=== PATIENT | female | born 1955 | race Caucasian/White ===

== ENCOUNTER 2019-12-21 09:20 | Emergency (ER) | payer MEDICARE, OTHER ==
[~2019-12-21] VITALS: Ht 172.7 cm; Wt 104.5 kg
[~2019-12-21 09:20] MED LIST: ATOR20TA86 PO; ENAL10TA2 PO; METF-445 PO; MULT-1192 PO; QUET200T PO; SERT100T12 PO; SITA100 PO
[2019-12-21] MEDS ORDERED: HYDR-1475 PO (09:47)
[2019-12-21] MEDS ORDERED: ENAL20 PO (09:47)
[2019-12-21 09:48] LABS: GLUCOSE,POINT OF CARE 254 MG/DL (70-110)
[2019-12-21] MEDS ORDERED: BENZ100C68 PO (10:16)
[2019-12-21] MEDS ORDERED: ATOR20TA86 PO (10:16)
[2019-12-21] MEDS ORDERED: GUAIF10 PO (10:16)
[2019-12-21] MEDS ORDERED: FAMO20 PO (10:16)
[2019-12-21] MEDS ORDERED: GABA-533 PO (10:16)
[2019-12-21] MEDS ORDERED: LEVO330T5 PO (10:16)
[2019-12-21] MEDS ORDERED: MAGOX PO (10:16)
[2019-12-21] MEDS ORDERED: OXYB5 PO (10:16)
[2019-12-21] MEDS ORDERED: NAPR-1025 PO (10:16)
[2019-12-21] MEDS ORDERED: LACT100C2 PO (10:16)
[2019-12-21] MEDS ORDERED: ACET-66 PO (10:16)
[2019-12-21] MEDS ORDERED: BISM525O9 PO (10:16)
[2019-12-21] MEDS ORDERED: LOPE-202 PO (10:16)
[2019-12-21] MEDS ORDERED: IPRAHFA IH (10:16)
[2019-12-21] MEDS ORDERED: METF-960 PO (10:16)
[2019-12-21 10:59] VITALS: BP 109/66
== END 2019-12-21 12:05 | disposition home or self-care (01) ==
LOC: EMS 09:23
DX: R10.32 Left lower quadrant pain (principal); M79.631 Pain in right forearm; E78.00 Pure hypercholesterolemia, unspecified; E11.9 Type 2 diabetes mellitus without complications; J44.9 Chronic obstructive pulmonary disease, unspecified; F32.9 Major depressive disorder, single episode, unspecified; F17.210 Nicotine dependence, cigarettes, uncomplicated; Z90.49 Acquired absence of other specified parts of digestive tract; Z90.710 Acquired absence of both cervix and uterus; Z79.899 Other long term (current) drug therapy

== ENCOUNTER 2020-01-13 07:19 | Emergency (ER) | payer MEDICARE, OTHER ==
[~2020-01-13] VITALS: Ht 167.6 cm; Wt 86.4 kg
[~2020-01-13 07:19] MED LIST changes: +ACET-66 PO; +BENZ100C68 PO; +BISM525O9 PO; -ENAL10TA2 PO; +ENAL20 PO; +FAMO20 PO; +GABA-533 PO; +GUAIF10 PO; +HYDR-1475 PO; +IPRAHFA IH; +LACT100C2 PO; +LEVO330T5 PO; +LOPE-202 PO; +MAGOX PO; -METF-445 PO; +METF-960 PO; +NAPR-1025 PO; +OXYB5 PO
[2020-01-13 07:41] LABS: GLUCOSE,POINT OF CARE 178 MG/DL (70-110)
[2020-01-13] MEDS ORDERED: ACETAMINOPHEN 500 MG TABLET PO ONE (09:00)
[2020-01-13 09:38] VITALS: BP 120/87
== END 2020-01-13 09:57 | disposition home or self-care (01) ==
LOC: EMS 07:21
DX: M25.551 Pain in right hip (principal); M25.552 Pain in left hip; F17.210 Nicotine dependence, cigarettes, uncomplicated; J44.9 Chronic obstructive pulmonary disease, unspecified; F32.9 Major depressive disorder, single episode, unspecified; E11.9 Type 2 diabetes mellitus without complications; E78.00 Pure hypercholesterolemia, unspecified; Z90.710 Acquired absence of both cervix and uterus; Z90.89 Acquired absence of other organs; Z79.84 Long term (current) use of oral hypoglycemic drugs
CPT/HCPCS: 72170; 99406

== ENCOUNTER 2020-01-14 14:35 | Inpatient (IN) | payer MEDICARE, OTHER ==
[~2020-01-14] VITALS: Ht 162.6 cm; Wt 82.2 kg
[2020-01-14 14:54] LABS: GLUCOSE,POINT OF CARE 211 MG/DL (70-110)
[2020-01-14 18:44] LABS: HEMATOCRIT 30.8 % (36-46); HEMOGLOBIN 9.8 g/dL (12.0-16.0); MEAN CORPUSCULAR HEMOGLOBIN 27.7 pg (26.0-34.0); MEAN CORPUSCULAR HGB CONC 31.7 G/dL (31.0-37.0); MEAN CORPUSCULAR VOLUME 87 fL (80-100); PLATELET COUNT (AUTO) 504 K/uL (150-450); RED BLOOD CELL COUNT(AUTO) 3.53 MIL/uL (4.00-5.20); RED CELL DISTRIBUTION WIDTH 17.6 % (11.5-14.5)
[2020-01-14 18:55] LABS: ALANINE AMINOTRANSFERASE 85 U/L (12-78); ALBUMIN 2.6 g/dL (3.4-5.0); ALKALINE PHOSPHATASE 218 U/L (46-116); ANION GAP 4 mmol/L (8-16); ASPARTATE AMINOTRANSFERASE 124 U/L (15-37); BILIRUBIN,TOTAL 0.7 mg/dL (0.1-1.0); CALCIUM, TOTAL 8.6 mg/dL (8.8-10.5); CARBON DIOXIDE 30 mmol/L (22-29); CHLORIDE 91 mmol/L (98-107); CREATININE 1.85 mg/dL (0.60-1.30); GLOMERULAR FILTR. RATE CALC 28 mL/min (>60); GLUCOSE,RANDOM 163 mg/dL (70-110); POTASSIUM 5.7 mmol/L (3.5-5.1); SODIUM SERUM 125 mmol/L (136-145); TOTAL PROTEIN, SERUM 7.3 g/dL (6.4-8.2); UREA NITROGEN, BLOOD 50 mg/dL (7-18)
[2020-01-14 19:27] LABS: BAND NEUTROPHILS % (MANUAL) 0 % (0-5)
[2020-01-14 19:33] LABS: CORRECTED WHITE BLOOD COUNT 8.4 K/uL (4.5-11.0); LYMPHOCYTES % (MANUAL) 18 % (22-44); MONOCYTES % (MANUAL) 9 % (2-9); SEGMENTED NEUTROPHILS % 73 % (40-70)
[2020-01-14] MEDS ORDERED: QUEtiapine FUMARATE 100 MG TABLET PO ONE (20:45)
[2020-01-14] MEDS ORDERED: LORazepam 2 MG/ML VIAL IVP ONE (20:45)
[2020-01-14] MEDS ORDERED: SODIUM CHLORIDE 0.9% 1,000 ML IV ONE ×2 (20:45→21:00)
[2020-01-14] MEDS ORDERED: DEXTROSE 50%-WATER 25 GM/50 ML SYRINGE IVP PRN (21:00)
[2020-01-14] MEDS ORDERED: 0.9% SODIUM CHLORIDE 10 ML SYRINGE IVP PRN (21:00)
[2020-01-14] MEDS: DOCUSATE SODIUM 100 MG CAPSULE PO SCH (21:00)
[2020-01-14] MEDS ORDERED: ALBUTEROL SULFATE 2.5 MG/0.5 ML NEB SOLUTION NEB PRN (21:00)
[2020-01-14] MEDS ORDERED: ACETAMINOPHEN 325 MG TABLET PO PRN (21:00)
[2020-01-14] MEDS ORDERED: ONDANSETRON HCL 4 MG/2 ML VIAL IVP PRN (21:00)
[2020-01-14 22:00] VITALS: BP 116/68
[2020-01-14] MEDS: INSULIN LISPRO 100 UNITS/ML SQ PRN (23:52)
[2020-01-14] MEDS: HEPARIN SODIUM,PORCINE 5,000 UNITS/ML VIAL SQ SCH (23:52)
[2020-01-15] VITALS (7 sets, daily range): BP systolic 94–144; BP diastolic 51–73
[2020-01-15 02:51] LABS: GLUCOMETER DEV NAME(LOC) 4E.2; GLUCOSE,POINT OF CARE 165 MG/DL (70-110)
[2020-01-15 06:15] LABS: GLUCOMETER DEV NAME(LOC) 4E.2; GLUCOSE,POINT OF CARE 96 MG/DL (70-110)
[2020-01-15 07:38] LABS: CALCIUM, TOTAL 8.6 mg/dL (8.8-10.5); CREATININE 1.53 mg/dL (0.60-1.30); POTASSIUM 4.9 mmol/L (3.5-5.1)
[2020-01-15] MEDS: DOCUSATE SODIUM 100 MG CAPSULE PO SCH ×2 (09:00→20:23)
[2020-01-15] MEDS: FAMOTIDINE 20 MG TABLET PO SCH (09:00)
[2020-01-15] MEDS: HEPARIN SODIUM,PORCINE 5,000 UNITS/ML VIAL SQ SCH ×2 (09:50→20:24)
[2020-01-15] MEDS: SODIUM CHLORIDE 0.9% 1,000 ML IV SCH ×2 (09:51→23:12)
[2020-01-15] MEDS: SERTRALINE HCL 100 MG TABLET PO SCH (11:00)
[2020-01-15] MEDS ORDERED: LEVO5TAB13 PO (11:08)
[2020-01-15] MEDS: QUEtiapine FUMARATE 200 MG TABLET PO SCH (20:23)
[2020-01-15] MEDS: NYSTATIN 15 GM POWDER BOTTLE TP SCH (20:24)
[2020-01-15 21:04] LABS: GLUCOMETER DEV NAME(LOC) 6N.1; GLUCOSE,POINT OF CARE 96 MG/DL (70-110)
[2020-01-15] MEDS ORDERED: FLUTICASONE/VILANTEROL 200-25 MCG/INH INHALER [14] IH ONE (22:15)
[2020-01-15 22:30] LABS: GLUCOMETER DEV NAME(LOC) 4E.2; GLUCOSE,POINT OF CARE 97 MG/DL (70-110)
[2020-01-15 22:30] LABS: GLUCOMETER DEV NAME(LOC) 4E.2; GLUCOSE,POINT OF CARE 101 MG/DL (70-110)
[2020-01-15 22:35] LABS: ABG A-A DIFF O2 204.6 mmHg (10-20.0); ABG BASE EXCESS -3.2 mmol/L (-2.0-3.0); ABG CARBOXYHEMOGLOBIN 2.7 % (0.0-1.5); ABG HCO3 20.9 mmol/L (22.0-26.0); ABG METHEMOGLOBIN 0.3 % (0.0-1.5); ABG OXYGEN CONTENT 13.3 mL/dL (15.0-23.0); ABG OXYGEN SATURATION 91.4 % (95.0-98.0); ABG OXYHEMOGLOBIN 88.7 % (94.0-100.0); ABG TOTAL HEMOGLOBIN 10.6 G/dL (12.0-18.0); PO2, ARTERIAL BG 69.7 mmHg (79.0-87.0); SOURCE, BLOOD GAS ARTERIAL; TEMPERATURE, FAHRENHEIT, BG 97.9 FAHREN (96.0-98.6)
[2020-01-15 22:37] LABS: ABG PCO2 74 mmHg (35-45); ABG PH 7.157 (7.35-7.450)
[2020-01-15 22:38] LABS: O2 DEVICE,BLOOD GAS VENTI MASK (ROOM AIR); SITE, BLOOD GAS RT RADIAL
[2020-01-15] MEDS: MethylPREDNISolone SOD SUCC 40 MG/ML VIAL IVP SCH (23:13)
[2020-01-16] MEDS ORDERED: SODIUM BICARBONATE 50 MEQ in SODIUM CHLORIDE 0.9% 1,000 ML IV ONE (01:00)
[2020-01-16 01:10] LABS: ABG PH 7.144 (7.35-7.450); SITE, BLOOD GAS RT RADIAL; SOURCE, BLOOD GAS ARTERIAL; TEMPERATURE, FAHRENHEIT, BG 98.6 FAHREN (96.0-98.6)
[2020-01-16 01:11] LABS: ABG BASE EXCESS -9.6 mmol/L (-2.0-3.0); ABG CARBOXYHEMOGLOBIN 3.1 % (0.0-1.5); ABG HCO3 16.7 mmol/L (22.0-26.0); ABG METHEMOGLOBIN 0.3 % (0.0-1.5); ABG OXYGEN CONTENT 12.7 mL/dL (15.0-23.0); ABG OXYGEN SATURATION 91.6 % (95.0-98.0); ABG OXYHEMOGLOBIN 88.5 % (94.0-100.0); ABG PCO2 58 mmHg (35-45); ABG TOTAL HEMOGLOBIN 10.1 G/dL (12.0-18.0); PO2, ARTERIAL BG 74.3 mmHg (79.0-87.0)
[2020-01-16 01:12] LABS: ABG A-A DIFF O2 290.3 mmHg (10-20.0); O2 DEVICE,BLOOD GAS BIPAP (ROOM AIR)
[2020-01-16] MEDS: IPRATROPIUM BROMIDE 0.5 MG/2.5 ML NEB SOLUTION NEB SCH ×4 (03:11→20:40)
[2020-01-16] MEDS: ALBUTEROL SULFATE 2.5 MG/0.5 ML NEB SOLUTION NEB SCH ×4 (03:11→20:40)
[2020-01-16 03:23] LABS: ABG PCO2 64 mmHg (35-45); SITE, BLOOD GAS RT RADIAL; SOURCE, BLOOD GAS ART; TEMPERATURE, FAHRENHEIT, BG 97.8 FAHREN (96.0-98.6)
[2020-01-16 03:24] LABS: ABG A-A DIFF O2 294.1 mmHg (10-20.0); ABG BASE EXCESS -5.2 mmol/L (-2.0-3.0); ABG CARBOXYHEMOGLOBIN 2.4 % (0.0-1.5); ABG HCO3 19.6 mmol/L (22.0-26.0); ABG METHEMOGLOBIN 0.3 % (0.0-1.5); ABG OXYGEN CONTENT 13.4 mL/dL (15.0-23.0); ABG OXYGEN SATURATION 90.1 % (95.0-98.0); ABG OXYHEMOGLOBIN 87.7 % (94.0-100.0); ABG TOTAL HEMOGLOBIN 10.8 G/dL (12.0-18.0); PO2, ARTERIAL BG 63.9 mmHg (79.0-87.0)
[2020-01-16 03:25] LABS: O2 DEVICE,BLOOD GAS BIPAP (ROOM AIR)
[2020-01-16] MEDS ORDERED: RAPID SEQUENCE KIT [RSI] 1 EACH KIT ONE (04:05)
[2020-01-16 04:30] VITALS: BP 176/70
[2020-01-16 05:42] LABS: ABG BASE EXCESS -8.6 mmol/L (-2.0-3.0); ABG CARBOXYHEMOGLOBIN 2.3 % (0.0-1.5); ABG HCO3 17.4 mmol/L (22.0-26.0); ABG METHEMOGLOBIN 0.3 % (0.0-1.5); ABG OXYGEN CONTENT 14.8 mL/dL (15.0-23.0); ABG OXYHEMOGLOBIN 92.5 % (94.0-100.0); ABG PCO2 53 mmHg (35-45); ABG TOTAL HEMOGLOBIN 11.3 G/dL (12.0-18.0); SOURCE, BLOOD GAS ARTERIAL; TEMPERATURE, FAHRENHEIT, BG 97.8 FAHREN (96.0-98.6)
[2020-01-16 05:43] LABS: ABG PH 7.186 (7.35-7.450); O2 DEVICE,BLOOD GAS VENTILATOR (ROOM AIR); PEEP,BG 5 cm H2O; SITE, BLOOD GAS RT RADIAL; SPONTANEOUS VT, BG 502 ml; VT, ABG 500 ml
[2020-01-16] MEDS: MethylPREDNISolone SOD SUCC 40 MG/ML VIAL IVP SCH ×3 (05:47→17:43)
[2020-01-16] MEDS: PROPOFOL 1000 MG/ISO-OSM 100 ML IV PRN ×5 (05:51→22:01)
[2020-01-16] MEDS: INSULIN LISPRO 100 UNITS/ML SQ PRN ×2 (06:51→17:47)
[2020-01-16 06:59] LABS: GLUCOSE,POINT OF CARE 165 MG/DL (70-110)
[2020-01-16 07:25] VITALS: BP 136/70
[2020-01-16 08:00] VITALS: BP 133/72
[2020-01-16] MEDS: LORazepam 2 MG/ML VIAL IVP PRN (08:36)
[2020-01-16] MEDS ORDERED: *CLINICAL-LEVOFLOXACIN IVPB DOSING CLINICAL ONE (08:45)
[2020-01-16] MEDS: DOCUSATE SODIUM 100 MG CAPSULE PO SCH ×2 (09:00→21:39)
[2020-01-16] MEDS: SERTRALINE HCL 100 MG TABLET PO SCH (09:00)
[2020-01-16] MEDS: FAMOTIDINE 20 MG TABLET PO SCH (09:00)
[2020-01-16] MEDS: NYSTATIN 15 GM POWDER BOTTLE TP SCH ×4 (09:00→21:39)
[2020-01-16] MEDS: CLINDAMYCIN 600 MG/D5% WATER 50 ML IV SCH ×2 (10:00→17:43)
[2020-01-16] MEDS ORDERED: SODIUM CHLORIDE 0.9% 0 ML ONE (10:13)
[2020-01-16] MEDS ORDERED: IOVERSOL 350 MG/ML 100 ML VIAL ONE (10:13)
[2020-01-16] MEDS: HEPARIN SODIUM,PORCINE 5,000 UNITS/ML VIAL SQ SCH ×2 (11:16→21:39)
[2020-01-16 12:00] VITALS: BP 131/69
[2020-01-16] MEDS ORDERED: PROPOFOL 1000 MG/ISO-OSM 100 ML IV ONE (14:19)
[2020-01-16] MEDS: SODIUM CHLORIDE 0.9% 1,000 ML IV SCH (14:37)
[2020-01-16 16:00] VITALS: BP 150/75
[2020-01-16 16:57] LABS: CALCIUM, TOTAL 8.3 mg/dL (8.8-10.5); CREATININE 1.18 mg/dL (0.60-1.30); POTASSIUM 5.2 mmol/L (3.5-5.1)
[2020-01-16 17:01] LABS: MAGNESIUM 1.7 mg/dL (1.80-2.40); PHOSPHORUS 3.3 mg/dL (2.5-4.9)
[2020-01-16 20:00] VITALS: BP 117/61
[2020-01-16] MEDS: QUEtiapine FUMARATE 200 MG TABLET PO SCH (22:14)
[2020-01-16] MEDS: FLUTICASONE/VILANTEROL 200-25 MCG/INH INHALER [14] IH SCH (22:30)
[2020-01-17] VITALS: BP 95/49
[2020-01-17] MEDS: MethylPREDNISolone SOD SUCC 40 MG/ML VIAL IVP SCH ×4 (00:24→17:36)
[2020-01-17] MEDS: INSULIN LISPRO 100 UNITS/ML SQ PRN ×4 (00:25→17:39)
[2020-01-17] MEDS: PROPOFOL 1000 MG/ISO-OSM 100 ML IV PRN ×4 (01:09→17:37)
[2020-01-17] MEDS: CLINDAMYCIN 600 MG/D5% WATER 50 ML IV SCH ×3 (01:10→17:36)
[2020-01-17] MEDS: ALBUTEROL SULFATE 2.5 MG/0.5 ML NEB SOLUTION NEB SCH ×4 (01:23→19:43)
[2020-01-17] MEDS: IPRATROPIUM BROMIDE 0.5 MG/2.5 ML NEB SOLUTION NEB SCH ×4 (01:23→19:43)
[2020-01-17] MEDS ORDERED: SODIUM CHLORIDE 0.9% 250 ML IV ONE (02:01)
[2020-01-17 04:00] VITALS: BP 108/56
[2020-01-17] MEDS: SODIUM CHLORIDE 0.9% 1,000 ML IV SCH (04:15)
[2020-01-17 05:49] LABS: BASOPHILS % (AUTO) 0.1 % (0.0-2.0); EOSINOPHILS % (AUTO) 0 % (1.0-6.0); HEMATOCRIT 32.4 % (36-46); HEMOGLOBIN 10.1 g/dL (12.0-16.0); LYMPHOCYTES # (AUTO) 0.5 K/uL (1.0-4.8); LYMPHOCYTES % (AUTO) 4.7 % (22.0-44.0); MEAN CORPUSCULAR HGB CONC 31.2 G/dL (31.0-37.0); MEAN CORPUSCULAR VOLUME 87 fL (80-100); MONOCYTES # (AUTO) 0.5 K/uL (0.1-1.0); MONOCYTES % (AUTO) 4.7 % (2.0-9.0); NEUTROPHILS # (AUTO) 9.1 K/uL (1.8-7.7); PLATELET COUNT (AUTO) 401 K/uL (150-450); RED BLOOD CELL COUNT(AUTO) 3.75 MIL/uL (4.00-5.20)
[2020-01-17 06:01] LABS: NEUTROPHILS % (AUTO) 90.5 % (40.0-70.0)
[2020-01-17 07:09] LABS: CREATININE 1.05 mg/dL (0.60-1.30); MAGNESIUM 1.9 mg/dL (1.80-2.40); POTASSIUM 4.9 mmol/L (3.5-5.1)
[2020-01-17 08:00] VITALS: BP 102/58
[2020-01-17 10:03] LABS: GLUCOSE,POINT OF CARE 158 MG/DL (70-110)
[2020-01-17 10:12] LABS: GLUCOSE,POINT OF CARE 203 MG/DL (70-110)
[2020-01-17 10:12] LABS: GLUCOSE,POINT OF CARE 160 MG/DL (70-110)
[2020-01-17] MEDS: DOCUSATE SODIUM 100 MG CAPSULE PO SCH ×2 (10:27→20:50)
[2020-01-17] MEDS: HEPARIN SODIUM,PORCINE 5,000 UNITS/ML VIAL SQ SCH ×2 (10:27→20:44)
[2020-01-17] MEDS: SERTRALINE HCL 100 MG TABLET PO SCH (10:27)
[2020-01-17] MEDS: LEVOFLOXACIN 750 MG/D5% WATER 150 ML IV SCH (10:27)
[2020-01-17] MEDS: FAMOTIDINE 20 MG TABLET PO SCH (10:27)
[2020-01-17] MEDS: NYSTATIN 15 GM POWDER BOTTLE TP SCH ×4 (10:27→20:49)
[2020-01-17 12:00] VITALS: BP 122/63
[2020-01-17] MEDS ORDERED: DEXMEDETOMIDINE HCL 200 MCG in SODIUM CHLORIDE 0.9% 48 ML IV PRN (13:35)
[2020-01-17 16:00] VITALS: BP 121/64
[2020-01-17 18:54] LABS: GLUCOSE,POINT OF CARE 170 MG/DL (70-110)
[2020-01-17 19:59] LABS: GLUCOSE,POINT OF CARE 172 MG/DL (70-110)
[2020-01-17 20:00] VITALS: BP 141/72
[2020-01-17] MEDS: FLUTICASONE/VILANTEROL 200-25 MCG/INH INHALER [14] IH SCH (20:41)
[2020-01-17] MEDS: QUEtiapine FUMARATE 200 MG TABLET PO SCH (20:50)
[2020-01-17] MEDS: DEXMEDETOMIDINE HCL 200 MCG in SODIUM CHLORIDE 0.9% 48 ML IV PRN (22:02)
[2020-01-17] MEDS ORDERED: SODIUM CHLORIDE 0.9% 100 ML ONE (23:57)
[2020-01-18] VITALS (7 sets, daily range): BP systolic 138–161; BP diastolic 57–99
[2020-01-18] MEDS: MethylPREDNISolone SOD SUCC 40 MG/ML VIAL IVP SCH ×5 (00:03→23:24)
[2020-01-18] MEDS: INSULIN LISPRO 100 UNITS/ML SQ PRN ×5 (00:04→23:25)
[2020-01-18] MEDS: ALBUTEROL SULFATE 2.5 MG/0.5 ML NEB SOLUTION NEB SCH ×4 (01:21→19:30)
[2020-01-18] MEDS: IPRATROPIUM BROMIDE 0.5 MG/2.5 ML NEB SOLUTION NEB SCH ×4 (01:21→19:30)
[2020-01-18] MEDS: CLINDAMYCIN 600 MG/D5% WATER 50 ML IV SCH ×2 (01:45→11:04)
[2020-01-18 02:13] LABS: GLUCOSE,POINT OF CARE 196 MG/DL (70-110)
[2020-01-18 05:24] LABS: BASOPHILS % (AUTO) 0.4 % (0.0-2.0); EOSINOPHILS % (AUTO) 0 % (1.0-6.0); HEMATOCRIT 32.8 % (36-46); HEMOGLOBIN 10.2 g/dL (12.0-16.0); LYMPHOCYTES # (AUTO) 0.8 K/uL (1.0-4.8); MEAN CORPUSCULAR HGB CONC 31.2 G/dL (31.0-37.0); MEAN CORPUSCULAR VOLUME 87 fL (80-100); MONOCYTES # (AUTO) 0.4 K/uL (0.1-1.0); MONOCYTES % (AUTO) 3.3 % (2.0-9.0); NEUTROPHILS # (AUTO) 11.5 K/uL (1.8-7.7); PLATELET COUNT (AUTO) 387 K/uL (150-450); RED BLOOD CELL COUNT(AUTO) 3.79 MIL/uL (4.00-5.20); RED CELL DISTRIBUTION WIDTH 17.4 % (11.5-14.5)
[2020-01-18 05:35] LABS: BILIRUBIN,TOTAL 0.5 mg/dL (0.1-1.0); CALCIUM, TOTAL 8.3 mg/dL (8.8-10.5); CREATININE 1.01 mg/dL (0.60-1.30); MAGNESIUM 1.7 mg/dL (1.80-2.40); POTASSIUM 4.6 mmol/L (3.5-5.1); TOTAL PROTEIN, SERUM 6.3 g/dL (6.4-8.2)
[2020-01-18 05:41] LABS: NEUTROPHILS % (AUTO) 90.3 % (40.0-70.0)
[2020-01-18] MEDS: DEXMEDETOMIDINE HCL 200 MCG in SODIUM CHLORIDE 0.9% 48 ML IV PRN ×3 (06:31→11:04)
[2020-01-18 06:48] LABS: GLUCOSE,POINT OF CARE 180 MG/DL (70-110)
[2020-01-18] MEDS ORDERED: MAGNESIUM OXIDE 400 MG TABLET PO PRN (08:45)
[2020-01-18] MEDS: DOCUSATE SODIUM 100 MG CAPSULE PO SCH ×2 (09:29→20:07)
[2020-01-18] MEDS: LEVOFLOXACIN 750 MG/D5% WATER 150 ML IV SCH (09:29)
[2020-01-18] MEDS: SERTRALINE HCL 100 MG TABLET PO SCH (09:29)
[2020-01-18] MEDS: FAMOTIDINE 20 MG TABLET PO SCH (09:29)
[2020-01-18] MEDS: HEPARIN SODIUM,PORCINE 5,000 UNITS/ML VIAL SQ SCH ×2 (09:29→20:06)
[2020-01-18] MEDS: NYSTATIN 15 GM POWDER BOTTLE TP SCH ×4 (09:29→20:07)
[2020-01-18] MEDS: MAGNESIUM GLUCONATE 1 GM/5 ML LIQUID 22 ML UDCUP NG PRN ×2 (11:05→17:23)
[2020-01-18] MEDS: PROPOFOL 1000 MG/ISO-OSM 100 ML IV PRN ×3 (13:04→21:07)
[2020-01-18 14:13] LABS: ABG BASE EXCESS 3.2 mmol/L (-2.0-3.0); ABG CARBOXYHEMOGLOBIN 1.2 % (0.0-1.5); ABG HCO3 26.9 mmol/L (22.0-26.0); ABG METHEMOGLOBIN 0.3 % (0.0-1.5); ABG OXYGEN CONTENT 13.5 mL/dL (15.0-23.0); ABG OXYGEN SATURATION 94.4 % (95.0-98.0); ABG PCO2 44 mmHg (35-45); ABG PH 7.417 (7.35-7.450); ABG TOTAL HEMOGLOBIN 10.3 G/dL (12.0-18.0); O2 DEVICE,BLOOD GAS VENTILATOR (ROOM AIR); PO2, ARTERIAL BG 69.6 mmHg (79.0-87.0); SITE, BLOOD GAS LFT RADIAL; SOURCE, BLOOD GAS ARTERIAL; TEMPERATURE, FAHRENHEIT, BG 98.6 FAHREN (96.0-98.6); VT, ABG 500 ml
[2020-01-18 14:14] LABS: PEEP,BG 5 cm H2O
[2020-01-18] MEDS ORDERED: VANCOMYCIN HCL 1.5 GM in DEXTROSE 5%-WATER 250 ML IV ONE (17:00)
[2020-01-18] MEDS: PIPERACILLIN/TAZO 3.375 GM/D5W 50 ML IV SCH ×2 (17:22→23:24)
[2020-01-18] MEDS ORDERED: BISACODYL 10 MG RECTAL RECTAL SUPPOSITORY PR PRN (17:30)
[2020-01-18] MEDS ORDERED: MAGNESIUM HYDROXIDE SUSPENSION 30 ML UDCUP PO PRN (17:30)
[2020-01-18 19:05] LABS: GLUCOSE,POINT OF CARE 228 MG/DL (70-110)
[2020-01-18] MEDS: FLUTICASONE/VILANTEROL 200-25 MCG/INH INHALER [14] IH SCH (20:06)
[2020-01-18] MEDS: QUEtiapine FUMARATE 200 MG TABLET PO SCH (20:06)
[2020-01-18] MEDS ORDERED: IOVERSOL 350 MG/ML 150 ML VIAL ONE (20:28)
[2020-01-18] MEDS ORDERED: SODIUM CHLORIDE 0.9% 100 ML ONE (20:28)
[2020-01-18 20:49] LABS: GLUCOSE,POINT OF CARE 208 MG/DL (70-110)
[2020-01-19] VITALS (7 sets, daily range): BP systolic 148–165; BP diastolic 75–90
[2020-01-19] MEDS: PROPOFOL 1000 MG/ISO-OSM 100 ML IV PRN ×5 (01:24→21:24)
[2020-01-19] MEDS: IPRATROPIUM BROMIDE 0.5 MG/2.5 ML NEB SOLUTION NEB SCH ×4 (04:12→20:10)
[2020-01-19] MEDS: ALBUTEROL SULFATE 2.5 MG/0.5 ML NEB SOLUTION NEB SCH ×4 (04:12→20:10)
[2020-01-19] MEDS: PIPERACILLIN/TAZO 3.375 GM/D5W 50 ML IV SCH ×4 (05:09→23:22)
[2020-01-19] MEDS: MethylPREDNISolone SOD SUCC 40 MG/ML VIAL IVP SCH ×4 (05:10→23:22)
[2020-01-19] MEDS: INSULIN LISPRO 100 UNITS/ML SQ PRN ×2 (05:12→13:01)
[2020-01-19 05:28] LABS: BASOPHILS % (AUTO) 0.3 % (0.0-2.0); EOSINOPHILS % (AUTO) 0.4 % (1.0-6.0); HEMOGLOBIN 10.2 g/dL (12.0-16.0); LYMPHOCYTES # (AUTO) 1.1 K/uL (1.0-4.8); LYMPHOCYTES % (AUTO) 9.7 % (22.0-44.0); MEAN CORPUSCULAR HEMOGLOBIN 26.8 pg (26.0-34.0); MEAN CORPUSCULAR VOLUME 86 fL (80-100); MONOCYTES # (AUTO) 0.5 K/uL (0.1-1.0); MONOCYTES % (AUTO) 4.9 % (2.0-9.0); NEUTROPHILS # (AUTO) 9.3 K/uL (1.8-7.7); NEUTROPHILS % (AUTO) 84.7 % (40.0-70.0); PLATELET COUNT (AUTO) 317 K/uL (150-450); RED BLOOD CELL COUNT(AUTO) 3.82 MIL/uL (4.00-5.20); RED CELL DISTRIBUTION WIDTH 17.9 % (11.5-14.5)
[2020-01-19 07:46] LABS: CALCIUM, TOTAL 8.7 mg/dL (8.8-10.5); CREATININE 0.96 mg/dL (0.60-1.30); POTASSIUM 4.6 mmol/L (3.5-5.1)
[2020-01-19 07:52] LABS: MAGNESIUM 1.6 mg/dL (1.80-2.40); TOTAL PROTEIN, SERUM 6.1 g/dL (6.4-8.2)
[2020-01-19 08:06] LABS: GLUCOSE,POINT OF CARE 237 MG/DL (70-110)
[2020-01-19 08:07] LABS: GLUCOSE,POINT OF CARE 225 MG/DL (70-110)
[2020-01-19] MEDS: VANCOMYCIN HCL 1 GM/D5% WATER 200 ML IV SCH ×2 (08:47→20:09)
[2020-01-19] MEDS: LEVOFLOXACIN 750 MG/D5% WATER 150 ML IV SCH (08:48)
[2020-01-19] MEDS: FAMOTIDINE 20 MG TABLET PO SCH (09:00)
[2020-01-19] MEDS: SERTRALINE HCL 100 MG TABLET PO SCH (09:00)
[2020-01-19] MEDS: HEPARIN SODIUM,PORCINE 5,000 UNITS/ML VIAL SQ SCH ×2 (09:00→20:11)
[2020-01-19] MEDS: DOCUSATE SODIUM 100 MG CAPSULE PO SCH ×2 (09:00→20:10)
[2020-01-19 09:08] LABS: ABG A-A DIFF O2 167.5 mmHg (10-20.0); ABG BASE EXCESS 5.7 mmol/L (-2.0-3.0); ABG CARBOXYHEMOGLOBIN 1.7 % (0.0-1.5); ABG HCO3 28.9 mmol/L (22.0-26.0); ABG METHEMOGLOBIN 0.3 % (0.0-1.5); ABG OXYGEN CONTENT 15.2 mL/dL (15.0-23.0); ABG OXYGEN SATURATION 93.6 % (95.0-98.0); ABG OXYHEMOGLOBIN 91.7 % (94.0-100.0); ABG PCO2 45 mmHg (35-45); ABG TOTAL HEMOGLOBIN 11.8 G/dL (12.0-18.0); PO2, ARTERIAL BG 66.1 mmHg (79.0-87.0); SOURCE, BLOOD GAS ARTERIAL; TEMPERATURE, FAHRENHEIT, BG 98.6 FAHREN (96.0-98.6)
[2020-01-19 09:09] LABS: O2 DEVICE,BLOOD GAS VENTILATOR (ROOM AIR); PEEP,BG 5 cm H2O; SITE, BLOOD GAS RT RADIAL; VT, ABG 500 ml
[2020-01-19] MEDS: NYSTATIN 15 GM POWDER BOTTLE TP SCH ×4 (10:41→20:11)
[2020-01-19 11:16] LABS: INR 1.2 (0.9-1.1); PROTHROMBIN TIME 12.2 SEC (9.4-11.6)
[2020-01-19 16:02] LABS: SPECIMENTYPE,BODY FLUID PLEURAL
[2020-01-19 16:44] LABS: APPEARANCE,UNSPUN,BODY FLUID BLOODY (CLEAR); COLOR,BODY FLUID RED (LT YELLOW); TOTAL VOLUME,BODY FLUID 750 mL
[2020-01-19 16:46] LABS: WBC, BODY FLUID 400 /cu. mm.
[2020-01-19 16:54] LABS: APPEARANCE,SPUN,BODY FLUID CLEAR (CLEAR); BASOPHILS,BODY FLUID 0 %; EOSINOPHILS,BF (ANAL) 0 %; LYMPHOCYTES,BODY FLUID 42 %; MONOCYTES,BODY FLUID 6 %; NEUTROPHILS,BODY FLUID 52 %
[2020-01-19] MEDS: QUEtiapine FUMARATE 200 MG TABLET PO SCH (20:11)
[2020-01-19] MEDS: FLUTICASONE/VILANTEROL 200-25 MCG/INH INHALER [14] IH SCH (21:00)
[2020-01-20] VITALS: BP 128/61
[2020-01-20] MEDS: INSULIN LISPRO 100 UNITS/ML SQ PRN ×5 (00:17→23:47)
[2020-01-20] MEDS: PROPOFOL 1000 MG/ISO-OSM 100 ML IV PRN ×2 (01:44→07:21)
[2020-01-20] MEDS: IPRATROPIUM BROMIDE 0.5 MG/2.5 ML NEB SOLUTION NEB SCH ×4 (02:29→19:48)
[2020-01-20] MEDS: ALBUTEROL SULFATE 2.5 MG/0.5 ML NEB SOLUTION NEB SCH ×4 (02:29→19:48)
[2020-01-20 03:07] LABS: GLUCOSE,POINT OF CARE 157 MG/DL (70-110)
[2020-01-20 03:07] LABS: GLUCOSE,POINT OF CARE 172 MG/DL (70-110)
[2020-01-20 04:00] VITALS: BP 143/78
[2020-01-20] MEDS: MethylPREDNISolone SOD SUCC 40 MG/ML VIAL IVP SCH ×4 (05:24→23:08)
[2020-01-20] MEDS: PIPERACILLIN/TAZO 3.375 GM/D5W 50 ML IV SCH ×4 (05:25→23:08)
[2020-01-20 06:14] LABS: ANION GAP 3 mmol/L (8-16); CALCIUM, TOTAL 8.8 mg/dL (8.8-10.5); CARBON DIOXIDE 32 mmol/L (22-29); CHLORIDE 96 mmol/L (98-107); CREATININE 0.91 mg/dL (0.60-1.30); GLOMERULAR FILTR. RATE CALC > 60 mL/min (>60); GLUCOSE,RANDOM 216 mg/dL (70-110); POTASSIUM 4.2 mmol/L (3.5-5.1); SODIUM SERUM 131 mmol/L (136-145); UREA NITROGEN, BLOOD 21 mg/dL (7-18); VANCOMYCIN,RANDOM 18.8 mcg/mL (25.0-50.0)
[2020-01-20 06:57] LABS: GLUCOSE,POINT OF CARE 194 MG/DL (70-110)
[2020-01-20 08:00] VITALS: BP 140/77
[2020-01-20] MEDS: FAMOTIDINE 20 MG TABLET PO SCH (08:40)
[2020-01-20] MEDS: SERTRALINE HCL 100 MG TABLET PO SCH (08:40)
[2020-01-20] MEDS: VANCOMYCIN HCL 1 GM/D5% WATER 200 ML IV SCH ×2 (08:40→19:44)
[2020-01-20] MEDS: HEPARIN SODIUM,PORCINE 5,000 UNITS/ML VIAL SQ SCH ×2 (08:40→20:20)
[2020-01-20] MEDS: DOCUSATE SODIUM 100 MG CAPSULE PO SCH ×2 (08:40→20:13)
[2020-01-20] MEDS: NYSTATIN 15 GM POWDER BOTTLE TP SCH ×4 (08:41→20:21)
[2020-01-20] MEDS: LEVOFLOXACIN 750 MG/D5% WATER 150 ML IV SCH (09:49)
[2020-01-20 12:00] VITALS: BP 139/73
[2020-01-20] MEDS ORDERED: SODIUM CHLORIDE 0.9% 250 ML IV ONE ×2 (12:00→21:02)
[2020-01-20 13:06] LABS: ABG A-A DIFF O2 128.8 mmHg (10-20.0); ABG BASE EXCESS 7.2 mmol/L (-2.0-3.0); ABG CARBOXYHEMOGLOBIN 1.4 % (0.0-1.5); ABG HCO3 29.9 mmol/L (22.0-26.0); ABG METHEMOGLOBIN 0.3 % (0.0-1.5); ABG OXYGEN CONTENT 14.9 mL/dL (15.0-23.0); ABG OXYGEN SATURATION 96.6 % (95.0-98.0); ABG PCO2 55 mmHg (35-45); ABG PH 7.384 (7.35-7.450); ABG TOTAL HEMOGLOBIN 11.1 G/dL (12.0-18.0); PO2, ARTERIAL BG 92.7 mmHg (79.0-87.0); SOURCE, BLOOD GAS ARTERIAL
[2020-01-20 13:07] LABS: CPAP, BG 5 cm H2O; O2 DEVICE,BLOOD GAS VENTILATOR (ROOM AIR); PRESSURE SUPPORT, BG 8 cm H2O; SITE, BLOOD GAS LFT RADIAL; VENT MODE, BG CPAP (ROOM AIR)
[2020-01-20 16:00] VITALS: BP 144/80
[2020-01-20 19:02] LABS: GLUCOSE,POINT OF CARE 207 MG/DL (70-110)
[2020-01-20 19:02] LABS: GLUCOSE,POINT OF CARE 236 MG/DL (70-110)
[2020-01-20] MEDS: LORazepam 2 MG/ML VIAL IVP PRN (19:44)
[2020-01-20 20:00] VITALS: BP 143/99
[2020-01-20] MEDS: FLUTICASONE/VILANTEROL 200-25 MCG/INH INHALER [14] IH SCH (20:20)
[2020-01-20] MEDS: QUEtiapine FUMARATE 200 MG TABLET PO SCH (20:21)
[2020-01-20 22:13] LABS: MAGNESIUM 1.2 mg/dL (1.80-2.40); POTASSIUM 4.2 mmol/L (3.5-5.1)
[2020-01-20] MEDS: MAGNESIUM SULFATE 4 GM/WATER 100 ML IV PRN (23:08)
[2020-01-21 00:07] VITALS: BP 149/83
[2020-01-21] MEDS: ALBUTEROL SULFATE 2.5 MG/0.5 ML NEB SOLUTION NEB SCH ×4 (01:38→20:34)
[2020-01-21] MEDS: IPRATROPIUM BROMIDE 0.5 MG/2.5 ML NEB SOLUTION NEB SCH ×4 (01:38→20:34)
[2020-01-21 03:21] LABS: GLUCOSE,POINT OF CARE 219 MG/DL (70-110)
[2020-01-21 04:00] VITALS: BP 140/79
[2020-01-21] MEDS: PIPERACILLIN/TAZO 3.375 GM/D5W 50 ML IV SCH ×2 (04:34→11:15)
[2020-01-21] MEDS: LORazepam 2 MG/ML VIAL IVP PRN (05:37)
[2020-01-21] MEDS: MethylPREDNISolone SOD SUCC 40 MG/ML VIAL IVP SCH ×3 (05:37→17:00)
[2020-01-21] MEDS: INSULIN LISPRO 100 UNITS/ML SQ PRN ×3 (05:39→17:27)
[2020-01-21 06:44] LABS: ANION GAP 0 mmol/L (8-16); CALCIUM, TOTAL 9.4 mg/dL (8.8-10.5); CARBON DIOXIDE 35 mmol/L (22-29); CHLORIDE 96 mmol/L (98-107); CREATININE 0.85 mg/dL (0.60-1.30); GLOMERULAR FILTR. RATE CALC > 60 mL/min (>60); GLUCOSE,RANDOM 220 mg/dL (70-110); POTASSIUM 4.3 mmol/L (3.5-5.1); SODIUM SERUM 131 mmol/L (136-145); UREA NITROGEN, BLOOD 22 mg/dL (7-18)
[2020-01-21 07:34] LABS: GLUCOSE,POINT OF CARE 213 MG/DL (70-110)
[2020-01-21 08:00] VITALS: BP 145/77
[2020-01-21] MEDS: VANCOMYCIN HCL 1 GM/D5% WATER 200 ML IV SCH (08:25)
[2020-01-21] MEDS: NYSTATIN 15 GM POWDER BOTTLE TP SCH ×4 (08:26→23:05)
[2020-01-21] MEDS: HEPARIN SODIUM,PORCINE 5,000 UNITS/ML VIAL SQ SCH ×2 (08:26→23:02)
[2020-01-21] MEDS: SERTRALINE HCL 100 MG TABLET PO SCH (08:26)
[2020-01-21] MEDS: FAMOTIDINE 20 MG TABLET PO SCH (08:26)
[2020-01-21] MEDS: LEVOFLOXACIN 750 MG/D5% WATER 150 ML IV SCH (08:27)
[2020-01-21] MEDS: DOCUSATE SODIUM 100 MG CAPSULE PO SCH ×2 (08:28→21:00)
[2020-01-21] MEDS: SCOPOLAMINE HYDROBROMIDE 1 MG/72 HOUR PATCH TD SCH (11:15)
[2020-01-21 12:00] VITALS: BP 147/71
[2020-01-21] MEDS ORDERED: VECURONIUM BROMIDE 10 MG/VIAL IVP ONE (12:00)
[2020-01-21 13:43] LABS: GLUCOSE,POINT OF CARE 219 MG/DL (70-110)
[2020-01-21 16:00] VITALS: BP 126/81
[2020-01-21] MEDS: CeFAZolin 1 GM/DEXTROSE 50 ML IV SCH ×2 (16:59→23:04)
[2020-01-21 20:00] VITALS: BP 152/86
[2020-01-21] MEDS: FLUTICASONE/VILANTEROL 200-25 MCG/INH INHALER [14] IH SCH (21:00)
[2020-01-21] MEDS: QUEtiapine FUMARATE 200 MG TABLET PO SCH (23:05)
[2020-01-22] MEDS: MethylPREDNISolone SOD SUCC 40 MG/ML VIAL IVP SCH ×4 (00:30→18:04)
[2020-01-22] MEDS: ALBUTEROL SULFATE 2.5 MG/0.5 ML NEB SOLUTION NEB SCH ×4 (01:27→20:05)
[2020-01-22] MEDS: IPRATROPIUM BROMIDE 0.5 MG/2.5 ML NEB SOLUTION NEB SCH ×4 (01:27→20:05)
[2020-01-22] MEDS: LORazepam 2 MG/ML VIAL IVP PRN (03:04)
[2020-01-22 04:29] LABS: GLUCOSE,POINT OF CARE 177 MG/DL (70-110)
[2020-01-22] MEDS: CeFAZolin 1 GM/DEXTROSE 50 ML IV SCH ×4 (04:58→22:10)
[2020-01-22] MEDS: INSULIN LISPRO 100 UNITS/ML SQ PRN ×3 (05:59→22:14)
[2020-01-22 06:08] LABS: ABG A-A DIFF O2 185.5 mmHg (10-20.0); ABG BASE EXCESS 12.5 mmol/L (-2.0-3.0); ABG HCO3 33.8 mmol/L (22.0-26.0); ABG METHEMOGLOBIN 0.3 % (0.0-1.5); ABG OXYGEN CONTENT 14.6 mL/dL (15.0-23.0); ABG OXYGEN SATURATION 96.1 % (95.0-98.0); ABG OXYHEMOGLOBIN 93.9 % (94.0-100.0); ABG PH 7.325 (7.35-7.450); PO2, ARTERIAL BG 86.1 mmHg (79.0-87.0); SOURCE, BLOOD GAS ARTERIAL; TEMPERATURE, FAHRENHEIT, BG 98.6 FAHREN (96.0-98.6)
[2020-01-22 06:09] LABS: ABG PCO2 76 mmHg (35-45); O2 DEVICE,BLOOD GAS VENTI MASK (ROOM AIR); SITE, BLOOD GAS RT RADIAL
[2020-01-22 06:18] LABS: ANION GAP 3 mmol/L (8-16); CALCIUM, TOTAL 9.1 mg/dL (8.8-10.5); CARBON DIOXIDE 36 mmol/L (22-29); CHLORIDE 98 mmol/L (98-107); CREATININE 0.89 mg/dL (0.60-1.30); GLOMERULAR FILTR. RATE CALC > 60 mL/min (>60); GLUCOSE,RANDOM 177 mg/dL (70-110); POTASSIUM 4.4 mmol/L (3.5-5.1); SODIUM SERUM 137 mmol/L (136-145); UREA NITROGEN, BLOOD 23 mg/dL (7-18)
[2020-01-22] MEDS ORDERED: RAPID SEQUENCE KIT [RSI] 1 EACH KIT ONE (06:23)
[2020-01-22 07:00] LABS: GLUCOSE,POINT OF CARE 173 MG/DL (70-110)
[2020-01-22 07:03] LABS: GLUCOSE,POINT OF CARE 176 MG/DL (70-110)
[2020-01-22] MEDS: PROPOFOL 1000 MG/ISO-OSM 100 ML IV PRN ×5 (07:21→22:29)
[2020-01-22 08:00] VITALS: BP 110/64
[2020-01-22 08:41] LABS: ABG A-A DIFF O2 514.8 mmHg (10-20.0); ABG BASE EXCESS 10.2 mmol/L (-2.0-3.0); ABG HCO3 32.5 mmol/L (22.0-26.0); ABG METHEMOGLOBIN 0.3 % (0.0-1.5); ABG OXYGEN CONTENT 17.6 mL/dL (15.0-23.0); ABG OXYGEN SATURATION 99.3 % (95.0-98.0); ABG PCO2 52 mmHg (35-45); ABG TOTAL HEMOGLOBIN 12.7 G/dL (12.0-18.0); PO2, ARTERIAL BG 146.5 mmHg (79.0-87.0); SOURCE, BLOOD GAS ARTERIAL; TEMPERATURE, FAHRENHEIT, BG 98.6 FAHREN (96.0-98.6)
[2020-01-22 08:42] LABS: O2 DEVICE,BLOOD GAS VENTILATOR (ROOM AIR); SITE, BLOOD GAS RT RADIAL
[2020-01-22 08:43] LABS: PEEP,BG 5 cm H2O; VT, ABG 500 ml
[2020-01-22 08:48] LABS: BASOPHILS % (AUTO) 0.5 % (0.0-2.0); EOSINOPHILS % (AUTO) 0.1 % (1.0-6.0); HEMATOCRIT 34.7 % (36-46); HEMOGLOBIN 10.5 g/dL (12.0-16.0); LYMPHOCYTES # (AUTO) 1.4 K/uL (1.0-4.8); LYMPHOCYTES % (AUTO) 12.5 % (22.0-44.0); MEAN CORPUSCULAR HEMOGLOBIN 26.2 pg (26.0-34.0); MEAN CORPUSCULAR HGB CONC 30.3 G/dL (31.0-37.0); MEAN CORPUSCULAR VOLUME 87 fL (80-100); MONOCYTES # (AUTO) 0.6 K/uL (0.1-1.0); MONOCYTES % (AUTO) 5.1 % (2.0-9.0); NEUTROPHILS # (AUTO) 9.4 K/uL (1.8-7.7); NEUTROPHILS % (AUTO) 81.8 % (40.0-70.0); PLATELET COUNT (AUTO) 284 K/uL (150-450); RED BLOOD CELL COUNT(AUTO) 4.01 MIL/uL (4.00-5.20); RED CELL DISTRIBUTION WIDTH 18.3 % (11.5-14.5)
[2020-01-22] MEDS: DOCUSATE SODIUM 100 MG CAPSULE PO SCH ×2 (09:00→21:00)
[2020-01-22] MEDS: FAMOTIDINE 20 MG TABLET PO SCH (09:51)
[2020-01-22] MEDS: NYSTATIN 15 GM POWDER BOTTLE TP SCH ×4 (09:51→21:00)
[2020-01-22] MEDS: SERTRALINE HCL 100 MG TABLET PO SCH (09:51)
[2020-01-22] MEDS: HEPARIN SODIUM,PORCINE 5,000 UNITS/ML VIAL SQ SCH ×2 (09:51→22:12)
[2020-01-22 12:00] VITALS: BP 152/94
[2020-01-22 14:49] LABS: GLUCOSE,POINT OF CARE 151 MG/DL (70-110)
[2020-01-22 16:00] VITALS: BP 143/93
[2020-01-22 20:00] VITALS: BP 123/68
[2020-01-22 22:00] VITALS: BP 133/75
[2020-01-22] MEDS: QUEtiapine FUMARATE 200 MG TABLET PO SCH (22:09)
[2020-01-23] VITALS (9 sets, daily range): BP systolic 116–157; BP diastolic 67–78
[2020-01-23 00:07] LABS: GLUCOSE,POINT OF CARE 176 MG/DL (70-110)
[2020-01-23] MEDS: MethylPREDNISolone SOD SUCC 40 MG/ML VIAL IVP SCH ×5 (00:50→23:11)
[2020-01-23] MEDS: PROPOFOL 1000 MG/ISO-OSM 100 ML IV PRN ×6 (01:44→23:10)
[2020-01-23] MEDS: IPRATROPIUM BROMIDE 0.5 MG/2.5 ML NEB SOLUTION NEB SCH ×4 (01:52→20:24)
[2020-01-23] MEDS: ALBUTEROL SULFATE 2.5 MG/0.5 ML NEB SOLUTION NEB SCH ×4 (01:52→20:24)
[2020-01-23] MEDS: CeFAZolin 1 GM/DEXTROSE 50 ML IV SCH ×4 (03:57→21:54)
[2020-01-23 06:03] LABS: GLUCOSE,POINT OF CARE 156 MG/DL (70-110)
[2020-01-23 06:03] LABS: GLUCOSE,POINT OF CARE 218 MG/DL (70-110)
[2020-01-23] MEDS: INSULIN LISPRO 100 UNITS/ML SQ PRN ×4 (06:03→23:30)
[2020-01-23] MEDS: FAMOTIDINE 20 MG TABLET PO SCH (08:01)
[2020-01-23] MEDS: SERTRALINE HCL 100 MG TABLET PO SCH (08:01)
[2020-01-23] MEDS: HEPARIN SODIUM,PORCINE 5,000 UNITS/ML VIAL SQ SCH ×2 (08:02→20:07)
[2020-01-23] MEDS: NYSTATIN 15 GM POWDER BOTTLE TP SCH ×4 (08:02→20:08)
[2020-01-23 08:56] LABS: BASOPHILS % (AUTO) 0.8 % (0.0-2.0); EOSINOPHILS % (AUTO) 0.1 % (1.0-6.0); HEMATOCRIT 35.9 % (36-46); HEMOGLOBIN 11.2 g/dL (12.0-16.0); LYMPHOCYTES # (AUTO) 1.5 K/uL (1.0-4.8); MEAN CORPUSCULAR HEMOGLOBIN 26.4 pg (26.0-34.0); MEAN CORPUSCULAR VOLUME 85 fL (80-100); MONOCYTES # (AUTO) 0.4 K/uL (0.1-1.0); MONOCYTES % (AUTO) 5.1 % (2.0-9.0); NEUTROPHILS # (AUTO) 6.2 K/uL (1.8-7.7); PLATELET COUNT (AUTO) 259 K/uL (150-450); RED BLOOD CELL COUNT(AUTO) 4.22 MIL/uL (4.00-5.20); RED CELL DISTRIBUTION WIDTH 18.4 % (11.5-14.5)
[2020-01-23] MEDS: DOCUSATE SODIUM 100 MG CAPSULE PO SCH ×2 (09:00→21:00)
[2020-01-23 09:10] LABS: ANION GAP 3 mmol/L (8-16); CALCIUM, TOTAL 9.1 mg/dL (8.8-10.5); CARBON DIOXIDE 36 mmol/L (22-29); CHLORIDE 96 mmol/L (98-107); CREATININE 0.81 mg/dL (0.60-1.30); GLOMERULAR FILTR. RATE CALC > 60 mL/min (>60); GLUCOSE,RANDOM 248 mg/dL (70-110); POTASSIUM 4.3 mmol/L (3.5-5.1); SODIUM SERUM 135 mmol/L (136-145); UREA NITROGEN, BLOOD 26 mg/dL (7-18)
[2020-01-23] MEDS ORDERED: SODIUM CHLORIDE 0.9% 250 ML IV ONE ×2 (19:21→22:18)
[2020-01-23] MEDS: QUEtiapine FUMARATE 200 MG TABLET PO SCH (20:07)
[2020-01-23] MEDS: FLUTICASONE/VILANTEROL 200-25 MCG/INH INHALER [14] IH SCH (20:09)
[2020-01-24] VITALS (8 sets, daily range): BP systolic 98–147; BP diastolic 54–77
[2020-01-24 00:49] LABS: GLUCOSE,POINT OF CARE 220 MG/DL (70-110)
[2020-01-24 00:49] LABS: GLUCOSE,POINT OF CARE 249 MG/DL (70-110)
[2020-01-24] MEDS: IPRATROPIUM BROMIDE 0.5 MG/2.5 ML NEB SOLUTION NEB SCH ×4 (01:56→19:43)
[2020-01-24] MEDS: ALBUTEROL SULFATE 2.5 MG/0.5 ML NEB SOLUTION NEB SCH ×4 (01:56→19:43)
[2020-01-24] MEDS: PROPOFOL 1000 MG/ISO-OSM 100 ML IV PRN ×6 (02:55→22:57)
[2020-01-24] MEDS: CeFAZolin 1 GM/DEXTROSE 50 ML IV SCH ×4 (04:07→22:35)
[2020-01-24 05:07] LABS: BASOPHILS % (AUTO) 0.4 % (0.0-2.0); EOSINOPHILS % (AUTO) 0.2 % (1.0-6.0); HEMATOCRIT 33.5 % (36-46); HEMOGLOBIN 10.4 g/dL (12.0-16.0); LYMPHOCYTES # (AUTO) 1.9 K/uL (1.0-4.8); LYMPHOCYTES % (AUTO) 24.8 % (22.0-44.0); MEAN CORPUSCULAR HEMOGLOBIN 26.3 pg (26.0-34.0); MEAN CORPUSCULAR VOLUME 85 fL (80-100); MONOCYTES # (AUTO) 0.4 K/uL (0.1-1.0); MONOCYTES % (AUTO) 5.8 % (2.0-9.0); NEUTROPHILS # (AUTO) 5.3 K/uL (1.8-7.7); NEUTROPHILS % (AUTO) 68.8 % (40.0-70.0); PLATELET COUNT (AUTO) 243 K/uL (150-450); RED BLOOD CELL COUNT(AUTO) 3.95 MIL/uL (4.00-5.20); RED CELL DISTRIBUTION WIDTH 18.5 % (11.5-14.5)
[2020-01-24] MEDS: MethylPREDNISolone SOD SUCC 40 MG/ML VIAL IVP SCH ×3 (05:14→17:04)
[2020-01-24] MEDS: INSULIN LISPRO 100 UNITS/ML SQ PRN ×2 (05:15→17:18)
[2020-01-24 05:24] LABS: ANION GAP 2 mmol/L (8-16); CARBON DIOXIDE 36 mmol/L (22-29); CHLORIDE 96 mmol/L (98-107); CREATININE 0.76 mg/dL (0.60-1.30); GLOMERULAR FILTR. RATE CALC > 60 mL/min (>60); GLUCOSE,RANDOM 252 mg/dL (70-110); POTASSIUM 4.4 mmol/L (3.5-5.1); SODIUM SERUM 134 mmol/L (136-145); UREA NITROGEN, BLOOD 26 mg/dL (7-18)
[2020-01-24] MEDS: MAGNESIUM SULFATE 2 GM/WATER 50 ML IV PRN (05:52)
[2020-01-24 07:14] LABS: GLUCOSE,POINT OF CARE 220 MG/DL (70-110)
[2020-01-24 07:15] LABS: GLUCOSE,POINT OF CARE 232 MG/DL (70-110)
[2020-01-24] MEDS: DOCUSATE SODIUM 100 MG CAPSULE PO SCH ×2 (09:00→21:00)
[2020-01-24] MEDS: FAMOTIDINE 20 MG TABLET PO SCH (10:35)
[2020-01-24] MEDS: SCOPOLAMINE HYDROBROMIDE 1 MG/72 HOUR PATCH TD SCH (10:35)
[2020-01-24] MEDS: HEPARIN SODIUM,PORCINE 5,000 UNITS/ML VIAL SQ SCH ×2 (10:35→22:35)
[2020-01-24] MEDS: SERTRALINE HCL 100 MG TABLET PO SCH (10:35)
[2020-01-24] MEDS: NYSTATIN 15 GM POWDER BOTTLE TP SCH ×3 (10:36→17:05)
[2020-01-24 17:22] LABS: GLUCOSE,POINT OF CARE 242 MG/DL (70-110)
[2020-01-24] MEDS ORDERED: IOVERSOL 350 MG/ML 150 ML VIAL ONE (18:06)
[2020-01-24] MEDS ORDERED: SODIUM CHLORIDE 0.9% 100 ML ONE (18:06)
[2020-01-24] MEDS: FLUTICASONE/VILANTEROL 200-25 MCG/INH INHALER [14] IH SCH (21:00)
[2020-01-24] MEDS: QUEtiapine FUMARATE 200 MG TABLET PO SCH (22:34)
[2020-01-25] VITALS: BP 140/76
[2020-01-25] MEDS: MethylPREDNISolone SOD SUCC 40 MG/ML VIAL IVP SCH ×4 (00:36→17:53)
[2020-01-25] MEDS: NYSTATIN 15 GM POWDER BOTTLE TP SCH ×5 (00:42→21:33)
[2020-01-25] MEDS: INSULIN LISPRO 100 UNITS/ML SQ PRN ×4 (00:50→19:59)
[2020-01-25] MEDS: ALBUTEROL SULFATE 2.5 MG/0.5 ML NEB SOLUTION NEB SCH ×4 (01:32→19:46)
[2020-01-25] MEDS: IPRATROPIUM BROMIDE 0.5 MG/2.5 ML NEB SOLUTION NEB SCH ×4 (01:32→19:46)
[2020-01-25] MEDS: PROPOFOL 1000 MG/ISO-OSM 100 ML IV PRN ×5 (03:07→20:51)
[2020-01-25 03:46] LABS: GLUCOSE,POINT OF CARE 241 MG/DL (70-110)
[2020-01-25 03:46] LABS: GLUCOSE,POINT OF CARE 217 MG/DL (70-110)
[2020-01-25 04:00] VITALS: BP 113/57
[2020-01-25] MEDS: CeFAZolin 1 GM/DEXTROSE 50 ML IV SCH ×4 (04:49→21:35)
[2020-01-25 05:15] LABS: HEMATOCRIT 36.4 % (36-46); HEMOGLOBIN 11.3 g/dL (12.0-16.0); MEAN CORPUSCULAR HEMOGLOBIN 26.3 pg (26.0-34.0); MEAN CORPUSCULAR HGB CONC 31.1 G/dL (31.0-37.0); MEAN CORPUSCULAR VOLUME 85 fL (80-100); PLATELET COUNT (AUTO) 238 K/uL (150-450); RED CELL DISTRIBUTION WIDTH 19.4 % (11.5-14.5)
[2020-01-25 05:24] LABS: ALBUMIN 1.8 g/dL (3.4-5.0); ANION GAP 2 mmol/L (8-16); CALCIUM, TOTAL 8.7 mg/dL (8.8-10.5); CARBON DIOXIDE 36 mmol/L (22-29); CHLORIDE 95 mmol/L (98-107); CREATININE 0.89 mg/dL (0.60-1.30); GLOMERULAR FILTR. RATE CALC > 60 mL/min (>60); GLUCOSE,RANDOM 240 mg/dL (70-110); POTASSIUM 4.6 mmol/L (3.5-5.1); SODIUM SERUM 133 mmol/L (136-145); UREA NITROGEN, BLOOD 29 mg/dL (7-18)
[2020-01-25 05:38] LABS: BAND NEUTROPHILS % (MANUAL) 0 % (0-5)
[2020-01-25 05:39] LABS: LYMPHOCYTES % (MANUAL) 10 % (22-44); MONOCYTES % (MANUAL) 3 % (2-9); SEGMENTED NEUTROPHILS % 87 % (40-70)
[2020-01-25 07:21] LABS: GLUCOSE,POINT OF CARE 234 MG/DL (70-110)
[2020-01-25 08:00] VITALS: BP 137/71
[2020-01-25] MEDS: DOCUSATE SODIUM 100 MG CAPSULE PO SCH ×2 (09:17→21:33)
[2020-01-25] MEDS: FAMOTIDINE 20 MG TABLET PO SCH (09:17)
[2020-01-25] MEDS: HEPARIN SODIUM,PORCINE 5,000 UNITS/ML VIAL SQ SCH ×2 (09:18→21:33)
[2020-01-25] MEDS: SERTRALINE HCL 100 MG TABLET PO SCH (09:18)
[2020-01-25 12:00] VITALS: BP 143/74
[2020-01-25] MEDS ORDERED: ETOMIDATE 2 MG/ML 10 ML VIAL IV ONE (14:32)
[2020-01-25] MEDS ORDERED: SUCCINYLCHOLINE CHLORIDE 20 MG/ML 10 ML VIAL IM ONE (14:32)
[2020-01-25 16:00] VITALS: BP 139/72
[2020-01-25 16:15] LABS: GLUCOSE,POINT OF CARE 242 MG/DL (70-110)
[2020-01-25 20:00] VITALS: BP 124/68
[2020-01-25] MEDS: FLUTICASONE/VILANTEROL 200-25 MCG/INH INHALER [14] IH SCH (21:00)
[2020-01-25] MEDS: QUEtiapine FUMARATE 200 MG TABLET PO SCH (23:02)
[2020-01-26] VITALS (7 sets, daily range): BP systolic 110–146; BP diastolic 67–79
[2020-01-26] MEDS: MethylPREDNISolone SOD SUCC 40 MG/ML VIAL IVP SCH ×5 (00:05→23:48)
[2020-01-26] MEDS: INSULIN LISPRO 100 UNITS/ML SQ PRN ×5 (00:06→23:49)
[2020-01-26] MEDS: IPRATROPIUM BROMIDE 0.5 MG/2.5 ML NEB SOLUTION NEB SCH ×4 (01:53→20:44)
[2020-01-26] MEDS: ALBUTEROL SULFATE 2.5 MG/0.5 ML NEB SOLUTION NEB SCH ×4 (01:53→20:44)
[2020-01-26] MEDS: PROPOFOL 1000 MG/ISO-OSM 100 ML IV PRN ×4 (02:17→23:49)
[2020-01-26] MEDS: CeFAZolin 1 GM/DEXTROSE 50 ML IV SCH ×4 (04:35→21:19)
[2020-01-26] MEDS: DEXMEDETOMIDINE HCL 200 MCG in SODIUM CHLORIDE 0.9% 48 ML IV PRN ×4 (05:36→22:11)
[2020-01-26 05:51] LABS: HEMATOCRIT 39.5 % (36-46); HEMOGLOBIN 12.3 g/dL (12.0-16.0); MEAN CORPUSCULAR HEMOGLOBIN 26.8 pg (26.0-34.0); MEAN CORPUSCULAR HGB CONC 31.2 G/dL (31.0-37.0); MEAN CORPUSCULAR VOLUME 86 fL (80-100); PLATELET COUNT (AUTO) 219 K/uL (150-450); RED BLOOD CELL COUNT(AUTO) 4.59 MIL/uL (4.00-5.20); RED CELL DISTRIBUTION WIDTH 19.5 % (11.5-14.5)
[2020-01-26 06:23] LABS: BAND NEUTROPHILS % (MANUAL) 0 % (0-5); LYMPHOCYTES % (MANUAL) 9 % (22-44); MONOCYTES % (MANUAL) 4 % (2-9); SEGMENTED NEUTROPHILS % 87 % (40-70)
[2020-01-26 06:45] LABS: GLUCOSE,POINT OF CARE 227 MG/DL (70-110)
[2020-01-26 06:45] LABS: GLUCOSE,POINT OF CARE 240 MG/DL (70-110)
[2020-01-26 06:45] LABS: GLUCOSE,POINT OF CARE 215 MG/DL (70-110)
[2020-01-26 08:21] LABS: CALCIUM, TOTAL 8.9 mg/dL (8.8-10.5); MAGNESIUM 1.1 mg/dL (1.80-2.40); POTASSIUM 4.5 mmol/L (3.5-5.1)
[2020-01-26] MEDS: FAMOTIDINE 20 MG TABLET PO SCH (09:05)
[2020-01-26] MEDS: SERTRALINE HCL 100 MG TABLET PO SCH (09:05)
[2020-01-26] MEDS: DOCUSATE SODIUM 100 MG CAPSULE PO SCH ×2 (09:05→19:52)
[2020-01-26] MEDS: HEPARIN SODIUM,PORCINE 5,000 UNITS/ML VIAL SQ SCH ×3 (09:05→23:48)
[2020-01-26] MEDS: NYSTATIN 15 GM POWDER BOTTLE TP SCH ×4 (09:06→21:18)
[2020-01-26] MEDS: MAGNESIUM SULFATE 4 GM/WATER 100 ML IV PRN (09:36)
[2020-01-26 12:38] LABS: GLUCOSE,POINT OF CARE 196 MG/DL (70-110)
[2020-01-26] MEDS ORDERED: SODIUM CHLORIDE 0.9% 250 ML IV ONE (16:13)
[2020-01-26 18:27] LABS: GLUCOSE,POINT OF CARE 240 MG/DL (70-110)
[2020-01-26] MEDS: FLUTICASONE/VILANTEROL 200-25 MCG/INH INHALER [14] IH SCH (20:49)
[2020-01-26] MEDS: QUEtiapine FUMARATE 100 MG TABLET PO SCH (21:18)
[2020-01-27] VITALS (9 sets, daily range): BP systolic 104–151; BP diastolic 55–82
[2020-01-27] MEDS: IPRATROPIUM BROMIDE 0.5 MG/2.5 ML NEB SOLUTION NEB SCH ×4 (01:42→19:54)
[2020-01-27] MEDS: ALBUTEROL SULFATE 2.5 MG/0.5 ML NEB SOLUTION NEB SCH ×4 (01:42→19:54)
[2020-01-27 02:05] LABS: GLUCOSE,POINT OF CARE 279 MG/DL (70-110)
[2020-01-27] MEDS: CeFAZolin 1 GM/DEXTROSE 50 ML IV SCH ×4 (03:52→21:26)
[2020-01-27] MEDS: PROPOFOL 1000 MG/ISO-OSM 100 ML IV PRN ×3 (04:16→21:25)
[2020-01-27] MEDS: MethylPREDNISolone SOD SUCC 40 MG/ML VIAL IVP SCH ×4 (05:22→23:51)
[2020-01-27] MEDS: INSULIN LISPRO 100 UNITS/ML SQ PRN ×4 (05:22→23:51)
[2020-01-27 05:37] LABS: HEMATOCRIT 38.7 % (36-46); HEMOGLOBIN 12.1 g/dL (12.0-16.0); MEAN CORPUSCULAR HEMOGLOBIN 27.1 pg (26.0-34.0); MEAN CORPUSCULAR HGB CONC 31.4 G/dL (31.0-37.0); MEAN CORPUSCULAR VOLUME 86 fL (80-100); PLATELET COUNT (AUTO) 205 K/uL (150-450); RED BLOOD CELL COUNT(AUTO) 4.49 MIL/uL (4.00-5.20); RED CELL DISTRIBUTION WIDTH 19.6 % (11.5-14.5)
[2020-01-27 05:42] LABS: GLUCOSE,POINT OF CARE 261 MG/DL (70-110)
[2020-01-27 05:44] LABS: ANION GAP 2 mmol/L (8-16); CALCIUM, TOTAL 8.5 mg/dL (8.8-10.5); CARBON DIOXIDE 35 mmol/L (22-29); CHLORIDE 95 mmol/L (98-107); CREATININE 0.91 mg/dL (0.60-1.30); GLOMERULAR FILTR. RATE CALC > 60 mL/min (>60); GLUCOSE,RANDOM 279 mg/dL (70-110); POTASSIUM 4.3 mmol/L (3.5-5.1); SODIUM SERUM 132 mmol/L (136-145); UREA NITROGEN, BLOOD 31 mg/dL (7-18)
[2020-01-27 06:02] LABS: BAND NEUTROPHILS % (MANUAL) 0 % (0-5)
[2020-01-27 06:05] LABS: LYMPHOCYTES % (MANUAL) 18 % (22-44); MONOCYTES % (MANUAL) 12 % (2-9); SEGMENTED NEUTROPHILS % 70 % (40-70)
[2020-01-27] MEDS: HEPARIN SODIUM,PORCINE 5,000 UNITS/ML VIAL SQ SCH ×3 (08:28→23:51)
[2020-01-27] MEDS: FAMOTIDINE 20 MG TABLET PO SCH (08:28)
[2020-01-27] MEDS: SERTRALINE HCL 50 MG TABLET PO SCH (08:28)
[2020-01-27] MEDS: NYSTATIN 15 GM POWDER BOTTLE TP SCH ×4 (08:28→20:29)
[2020-01-27] MEDS: DOCUSATE SODIUM 100 MG CAPSULE PO SCH ×2 (08:29→20:29)
[2020-01-27] MEDS: SCOPOLAMINE HYDROBROMIDE 1 MG/72 HOUR PATCH TD SCH (08:33)
[2020-01-27] MEDS: DEXMEDETOMIDINE HCL 200 MCG in SODIUM CHLORIDE 0.9% 48 ML IV PRN (11:14)
[2020-01-27] MEDS: LORazepam 2 MG/ML VIAL IVP PRN (11:53)
[2020-01-27 12:37] LABS: GLUCOSE,POINT OF CARE 268 MG/DL (70-110)
[2020-01-27] MEDS ORDERED: SODIUM CHLORIDE 0.9% 250 ML IV ONE (16:31)
[2020-01-27 19:48] LABS: GLUCOSE,POINT OF CARE 238 MG/DL (70-110)
[2020-01-27] MEDS: QUEtiapine FUMARATE 100 MG TABLET PO SCH (20:29)
[2020-01-27] MEDS: FLUTICASONE/VILANTEROL 200-25 MCG/INH INHALER [14] IH SCH (20:29)
[2020-01-28] VITALS (8 sets, daily range): BP systolic 93–151; BP diastolic 53–74
[2020-01-28 01:20] LABS: GLUCOSE,POINT OF CARE 258 MG/DL (70-110)
[2020-01-28] MEDS: IPRATROPIUM BROMIDE 0.5 MG/2.5 ML NEB SOLUTION NEB SCH ×4 (01:50→20:02)
[2020-01-28] MEDS: ALBUTEROL SULFATE 2.5 MG/0.5 ML NEB SOLUTION NEB SCH ×4 (01:50→20:02)
[2020-01-28] MEDS: CeFAZolin 1 GM/DEXTROSE 50 ML IV SCH ×4 (03:46→22:55)
[2020-01-28] MEDS: PROPOFOL 1000 MG/ISO-OSM 100 ML IV PRN ×4 (04:11→21:18)
[2020-01-28] MEDS: INSULIN LISPRO 100 UNITS/ML SQ PRN ×2 (05:30→17:32)
[2020-01-28] MEDS: MethylPREDNISolone SOD SUCC 40 MG/ML VIAL IVP SCH (05:30)
[2020-01-28 07:15] LABS: GLUCOSE,POINT OF CARE 229 MG/DL (70-110)
[2020-01-28] MEDS: DOCUSATE SODIUM 100 MG CAPSULE PO SCH ×2 (09:07→21:00)
[2020-01-28] MEDS: HEPARIN SODIUM,PORCINE 5,000 UNITS/ML VIAL SQ SCH ×2 (09:07→17:00)
[2020-01-28] MEDS: FAMOTIDINE 20 MG TABLET PO SCH (09:07)
[2020-01-28] MEDS: NYSTATIN 15 GM POWDER BOTTLE TP SCH ×4 (09:08→21:18)
[2020-01-28] MEDS: SERTRALINE HCL 50 MG TABLET PO SCH (09:08)
[2020-01-28 11:21] LABS: HEMATOCRIT 37.7 % (36-46); HEMOGLOBIN 12.1 g/dL (12.0-16.0); MEAN CORPUSCULAR HEMOGLOBIN 27.4 pg (26.0-34.0); MEAN CORPUSCULAR VOLUME 86 fL (80-100); PLATELET COUNT (AUTO) 236 K/uL (150-450); RED BLOOD CELL COUNT(AUTO) 4.41 MIL/uL (4.00-5.20); RED CELL DISTRIBUTION WIDTH 20.3 % (11.5-14.5)
[2020-01-28 11:35] LABS: ANION GAP 7 mmol/L (8-16); CALCIUM, TOTAL 8.8 mg/dL (8.8-10.5); CARBON DIOXIDE 31 mmol/L (22-29); CHLORIDE 98 mmol/L (98-107); CREATININE 0.75 mg/dL (0.60-1.30); GLOMERULAR FILTR. RATE CALC > 60 mL/min (>60); GLUCOSE,RANDOM 220 mg/dL (70-110); POTASSIUM 4.4 mmol/L (3.5-5.1); SODIUM SERUM 136 mmol/L (136-145); UREA NITROGEN, BLOOD 31 mg/dL (7-18)
[2020-01-28 11:39] LABS: INR 1.1 (0.9-1.1); PROTHROMBIN TIME 10.9 SEC (9.4-11.6)
[2020-01-28] MEDS ORDERED: ETOMIDATE 2 MG/ML 10 ML VIAL ONE ×2 (11:39→12:20)
[2020-01-28] MEDS: FentaNYL CITRATE PF 500 MCG in DEXTROSE 5%-WATER 90 ML IV PRN ×2 (11:40→13:13)
[2020-01-28 11:42] LABS: BAND NEUTROPHILS % (MANUAL) 0 % (0-5)
[2020-01-28 12:25] LABS: LYMPHOCYTES % (MANUAL) 21 % (22-44); MONOCYTES % (MANUAL) 6 % (2-9); SEGMENTED NEUTROPHILS % 73 % (40-70)
[2020-01-28] MEDS ORDERED: VECURONIUM BROMIDE 10 MG/VIAL IVP ONE ×2 (12:25→12:30)
[2020-01-28] MEDS ORDERED: ETOMIDATE 2 MG/ML 10 ML VIAL IVP ONE (17:00)
[2020-01-28 19:51] LABS: GLUCOSE,POINT OF CARE 175 MG/DL (70-110)
[2020-01-28 19:51] LABS: GLUCOSE,POINT OF CARE 201 MG/DL (70-110)
[2020-01-28] MEDS: FLUTICASONE/VILANTEROL 200-25 MCG/INH INHALER [14] IH SCH (21:00)
[2020-01-28] MEDS: QUEtiapine FUMARATE 100 MG TABLET PO SCH (21:17)
[2020-01-29] VITALS (8 sets, daily range): BP systolic 95–132; BP diastolic 44–75
[2020-01-29 01:02] LABS: GLUCOSE,POINT OF CARE 122 MG/DL (70-110)
[2020-01-29] MEDS: IPRATROPIUM BROMIDE 0.5 MG/2.5 ML NEB SOLUTION NEB SCH ×4 (03:53→20:19)
[2020-01-29] MEDS: ALBUTEROL SULFATE 2.5 MG/0.5 ML NEB SOLUTION NEB SCH ×4 (03:53→20:20)
[2020-01-29] MEDS: CeFAZolin 1 GM/DEXTROSE 50 ML IV SCH ×4 (03:58→21:15)
[2020-01-29 06:00] LABS: HEMATOCRIT 36.6 % (36-46); HEMOGLOBIN 11.5 g/dL (12.0-16.0); MEAN CORPUSCULAR HGB CONC 31.4 G/dL (31.0-37.0); MEAN CORPUSCULAR VOLUME 86 fL (80-100); PLATELET COUNT (AUTO) 216 K/uL (150-450); RED BLOOD CELL COUNT(AUTO) 4.25 MIL/uL (4.00-5.20); RED CELL DISTRIBUTION WIDTH 20.1 % (11.5-14.5)
[2020-01-29 06:12] LABS: BAND NEUTROPHILS % (MANUAL) 0 % (0-5); CALCIUM, TOTAL 8.7 mg/dL (8.8-10.5); CREATININE 1.19 mg/dL (0.60-1.30); MAGNESIUM 1.6 mg/dL (1.80-2.40); POTASSIUM 3.7 mmol/L (3.5-5.1)
[2020-01-29 07:27] LABS: BASOPHILS % (MANUAL) 1 % (0-2); EOSINOPHILS % (MANUAL) 3 % (1-6); LYMPHOCYTES % (MANUAL) 29 % (22-44); MONOCYTES % (MANUAL) 5 % (2-9); SEGMENTED NEUTROPHILS % 62 % (40-70)
[2020-01-29] MEDS: MAGNESIUM SULFATE 2 GM/WATER 50 ML IV PRN (07:56)
[2020-01-29] MEDS ORDERED: SODIUM CHLORIDE 0.9% 500 ML IV ONE (08:01)
[2020-01-29] MEDS: HEPARIN SODIUM,PORCINE 5,000 UNITS/ML VIAL SQ SCH ×3 (08:02→17:04)
[2020-01-29] MEDS: ACETAMINOPHEN 325 MG TABLET PO PRN (08:04)
[2020-01-29] MEDS: SERTRALINE HCL 50 MG TABLET PO SCH (08:04)
[2020-01-29] MEDS: FAMOTIDINE 20 MG TABLET PO SCH (08:04)
[2020-01-29] MEDS: NYSTATIN 15 GM POWDER BOTTLE TP SCH ×4 (08:04→21:16)
[2020-01-29] MEDS: DOCUSATE SODIUM 100 MG CAPSULE PO SCH ×2 (08:06→21:00)
[2020-01-29] MEDS ORDERED: MethylPREDNISolone SOD SUCC 40 MG/ML VIAL IVP SCH (09:00)
[2020-01-29] MEDS: QUEtiapine FUMARATE 25 MG TABLET PO SCH ×2 (10:45→17:04)
[2020-01-29] MEDS: LORazepam 2 MG/ML VIAL IVP PRN ×2 (11:21→18:32)
[2020-01-29] MEDS: INSULIN LISPRO 100 UNITS/ML SQ PRN ×3 (12:54→22:35)
[2020-01-29] MEDS: METOCLOPRAMIDE HCL 5 MG/ML 2 ML VIAL IVP SCH (17:04)
[2020-01-29 17:30] LABS: CALCIUM, TOTAL 8.4 mg/dL (8.8-10.5); CREATININE 1.02 mg/dL (0.60-1.30); POTASSIUM 3.9 mmol/L (3.5-5.1)
[2020-01-29 17:33] LABS: MAGNESIUM 1.9 mg/dL (1.80-2.40); PHOSPHORUS 3.8 mg/dL (2.5-4.9)
[2020-01-29] MEDS ORDERED: SODIUM CHLORIDE 0.9% 250 ML IV ONE (20:18)
[2020-01-29] MEDS: HALOPERIDOL LACTATE 5 MG/ML VIAL IVP PRN (20:51)
[2020-01-29] MEDS: FLUTICASONE/VILANTEROL 200-25 MCG/INH INHALER [14] IH SCH (21:00)
[2020-01-29] MEDS: QUEtiapine FUMARATE 100 MG TABLET PO SCH (22:35)
[2020-01-30] MEDS: HEPARIN SODIUM,PORCINE 5,000 UNITS/ML VIAL SQ SCH ×3 (00:21→15:42)
[2020-01-30] MEDS: METOCLOPRAMIDE HCL 5 MG/ML 2 ML VIAL IVP SCH ×4 (00:22→17:17)
[2020-01-30] MEDS: LORazepam 2 MG/ML VIAL IVP PRN ×3 (00:43→21:17)
[2020-01-30] MEDS: ALBUTEROL SULFATE 2.5 MG/0.5 ML NEB SOLUTION NEB SCH ×4 (02:18→19:47)
[2020-01-30] MEDS: IPRATROPIUM BROMIDE 0.5 MG/2.5 ML NEB SOLUTION NEB SCH ×4 (02:18→19:47)
[2020-01-30] MEDS ORDERED: SODIUM CHLORIDE 0.9% 500 ML IV ONE (04:24)
[2020-01-30 04:29] VITALS: BP 125/68
[2020-01-30] MEDS: CeFAZolin 1 GM/DEXTROSE 50 ML IV SCH ×4 (04:57→22:29)
[2020-01-30 05:30] LABS: GLUCOMETER DEV NAME(LOC) 5S.1; GLUCOSE,POINT OF CARE 200 MG/DL (70-110)
[2020-01-30 05:30] LABS: GLUCOMETER DEV NAME(LOC) 5S.1; GLUCOSE,POINT OF CARE 148 MG/DL (70-110)
[2020-01-30 06:41] LABS: GLUCOMETER DEV NAME(LOC) 5S.2A; GLUCOSE,POINT OF CARE 104 MG/DL (70-110)
[2020-01-30 07:15] VITALS: BP 117/61
[2020-01-30 07:57] LABS: GLUCOSE,POINT OF CARE 177 MG/DL (70-110)
[2020-01-30] MEDS: SCOPOLAMINE HYDROBROMIDE 1 MG/72 HOUR PATCH TD SCH (08:54)
[2020-01-30] MEDS: FAMOTIDINE 20 MG TABLET PO SCH (08:54)
[2020-01-30] MEDS: DOCUSATE SODIUM 100 MG CAPSULE PO SCH ×2 (08:54→21:00)
[2020-01-30] MEDS: QUEtiapine FUMARATE 25 MG TABLET PO SCH ×2 (08:54→17:17)
[2020-01-30] MEDS: SERTRALINE HCL 50 MG TABLET PO SCH (08:54)
[2020-01-30] MEDS: NYSTATIN 15 GM POWDER BOTTLE TP SCH ×4 (08:55→21:09)
[2020-01-30] MEDS ORDERED: MethylPREDNISolone SOD SUCC 40 MG/ML VIAL IVP SCH (09:00)
[2020-01-30 11:31] LABS: GLUCOMETER DEV NAME(LOC) 5S.1; GLUCOSE,POINT OF CARE 138 MG/DL (70-110)
[2020-01-30 11:37] VITALS: BP 158/76
[2020-01-30 15:04] VITALS: BP 130/59
[2020-01-30] MEDS: INSULIN LISPRO 100 UNITS/ML SQ PRN (17:18)
[2020-01-30 17:55] LABS: GLUCOMETER DEV NAME(LOC) 5S.2A; GLUCOSE,POINT OF CARE 200 MG/DL (70-110)
[2020-01-30] MEDS: HALOPERIDOL LACTATE 5 MG/ML VIAL IVP PRN (17:55)
[2020-01-30 20:04] VITALS: BP 131/70
[2020-01-30] MEDS: FLUTICASONE/VILANTEROL 200-25 MCG/INH INHALER [14] IH SCH (20:54)
[2020-01-30] MEDS: QUEtiapine FUMARATE 100 MG TABLET PO SCH (21:09)
[2020-01-30] MEDS ORDERED: CeFAZolin 1 GM/DEXTROSE 50 ML IV ONE (23:55)
[2020-01-31 00:14] VITALS: BP 125/66
[2020-01-31] MEDS: HEPARIN SODIUM,PORCINE 5,000 UNITS/ML VIAL SQ SCH ×4 (00:28→23:50)
[2020-01-31] MEDS: METOCLOPRAMIDE HCL 5 MG/ML 2 ML VIAL IVP SCH ×5 (00:28→23:50)
[2020-01-31] MEDS: IPRATROPIUM BROMIDE 0.5 MG/2.5 ML NEB SOLUTION NEB SCH ×4 (01:47→20:18)
[2020-01-31] MEDS: ALBUTEROL SULFATE 2.5 MG/0.5 ML NEB SOLUTION NEB SCH ×4 (01:47→20:18)
[2020-01-31] MEDS: CeFAZolin 1 GM/DEXTROSE 50 ML IV SCH ×4 (03:41→22:16)
[2020-01-31] MEDS: HALOPERIDOL LACTATE 5 MG/ML VIAL IVP PRN (04:18)
[2020-01-31 06:42] LABS: GLUCOMETER DEV NAME(LOC) 5S.2A; GLUCOSE,POINT OF CARE 147 MG/DL (70-110)
[2020-01-31 06:42] LABS: GLUCOMETER DEV NAME(LOC) 5S.2A; GLUCOSE,POINT OF CARE 120 MG/DL (70-110)
[2020-01-31 06:43] LABS: GLUCOMETER DEV NAME(LOC) 5S.1; GLUCOSE,POINT OF CARE 114 MG/DL (70-110)
[2020-01-31] MEDS: DOCUSATE SODIUM 100 MG CAPSULE PO SCH ×2 (07:50→19:58)
[2020-01-31] MEDS: FAMOTIDINE 20 MG TABLET PO SCH (07:50)
[2020-01-31] MEDS: SERTRALINE HCL 50 MG TABLET PO SCH (07:51)
[2020-01-31] MEDS: QUEtiapine FUMARATE 25 MG TABLET PO SCH ×2 (07:51→17:30)
[2020-01-31 07:58] VITALS: BP 137/74
[2020-01-31] MEDS: NYSTATIN 15 GM POWDER BOTTLE TP SCH ×4 (08:39→20:00)
[2020-01-31] MEDS ORDERED: MethylPREDNISolone SOD SUCC 40 MG/ML VIAL IVP SCH (09:00)
[2020-01-31 11:27] VITALS: BP 159/71
[2020-01-31 12:33] LABS: GLUCOMETER DEV NAME(LOC) 5S.2A; GLUCOSE,POINT OF CARE 149 MG/DL (70-110)
[2020-01-31] MEDS ORDERED: AUD NEB ×2 (12:58→13:17)
[2020-01-31] MEDS ORDERED: DOCU-275 PO (12:59)
[2020-01-31] MEDS ORDERED: CEFA1FRO IV (12:59)
[2020-01-31] MEDS ORDERED: FAMO20 PO (13:00)
[2020-01-31] MEDS ORDERED: HEPA500018 SQ (13:01)
[2020-01-31] MEDS ORDERED: IPRNEB IH (13:01)
[2020-01-31] MEDS ORDERED: FLUT1BLS IH (13:01)
[2020-01-31] MEDS ORDERED: METO10L PO (13:02)
[2020-01-31] MEDS ORDERED: SM500I IV (13:03)
[2020-01-31] MEDS ORDERED: NYST30CR9 TP (13:03)
[2020-01-31] MEDS ORDERED: QUET100T PO (13:04)
[2020-01-31] MEDS ORDERED: QUET25TA PO (13:04)
[2020-01-31] MEDS ORDERED: SERT50TA12 PO (13:05)
[2020-01-31] MEDS ORDERED: SCOP1PAT11 TD (13:05)
[2020-01-31] MEDS ORDERED: ACET-66 PO (13:07)
[2020-01-31] MEDS ORDERED: BISA-151 PO (13:17)
[2020-01-31] MEDS: LORazepam 2 MG/ML VIAL IVP PRN ×2 (14:17→22:16)
[2020-01-31] MEDS: ACETAMINOPHEN 325 MG TABLET PO PRN (14:38)
[2020-01-31 16:13] VITALS: BP 138/79
[2020-01-31] MEDS ORDERED: AMIODARONE HCL 150 MG in DEXTROSE 5%-WATER 97 ML IV ONE (18:00)
[2020-01-31] MEDS ORDERED: AMIODARONE HCL 360 MG in DEXTROSE 5%-WATER 242.8 ML IV ONE (18:30)
[2020-01-31 18:58] LABS: GLUCOMETER DEV NAME(LOC) 5S.1; GLUCOSE,POINT OF CARE 134 MG/DL (70-110)
[2020-01-31] MEDS ORDERED: SODIUM CHLORIDE 0.9% 250 ML IV ONE (19:05)
[2020-01-31 19:47] VITALS: BP 137/76
[2020-01-31] MEDS: FLUTICASONE/VILANTEROL 200-25 MCG/INH INHALER [14] IH SCH (19:58)
[2020-01-31] MEDS: QUEtiapine FUMARATE 100 MG TABLET PO SCH (20:00)
[2020-02-01] MEDS ORDERED: AMIODARONE HCL 540 MG in DEXTROSE 5%-WATER 239.2 ML IV ONE (00:30)
[2020-02-01 00:47] VITALS: BP 117/51
[2020-02-01 02:10] LABS: H. PYLORI ANTIBODY IGG 0.14 (0.00-0.79)
[2020-02-01] MEDS: ALBUTEROL SULFATE 2.5 MG/0.5 ML NEB SOLUTION NEB SCH ×3 (02:14→14:29)
[2020-02-01] MEDS: IPRATROPIUM BROMIDE 0.5 MG/2.5 ML NEB SOLUTION NEB SCH ×3 (02:14→14:29)
[2020-02-01] MEDS: CeFAZolin 1 GM/DEXTROSE 50 ML IV SCH ×2 (04:11→08:04)
[2020-02-01 04:46] VITALS: BP 128/62
[2020-02-01] MEDS: METOCLOPRAMIDE HCL 5 MG/ML 2 ML VIAL IVP SCH ×2 (06:17→11:24)
[2020-02-01 07:33] LABS: GLUCOMETER DEV NAME(LOC) 5S.1; GLUCOSE,POINT OF CARE 144 MG/DL (70-110)
[2020-02-01] MEDS: DOCUSATE SODIUM 100 MG CAPSULE PO SCH (07:38)
[2020-02-01] MEDS: LORazepam 2 MG/ML VIAL IVP PRN ×2 (07:44→16:00)
[2020-02-01] MEDS: SERTRALINE HCL 50 MG TABLET PO SCH (07:44)
[2020-02-01] MEDS: FAMOTIDINE 20 MG TABLET PO SCH (07:44)
[2020-02-01] MEDS: QUEtiapine FUMARATE 25 MG TABLET PO SCH (07:44)
[2020-02-01] MEDS: HEPARIN SODIUM,PORCINE 5,000 UNITS/ML VIAL SQ SCH (07:44)
[2020-02-01] MEDS: NYSTATIN 15 GM POWDER BOTTLE TP SCH ×2 (07:45→11:24)
[2020-02-01 07:59] VITALS: BP 134/74
[2020-02-01] MEDS ORDERED: PANTOPRAZOLE SODIUM 40 MG DR TABLET PO SCH (09:00)
[2020-02-01 11:05] LABS: GLUCOMETER DEV NAME(LOC) 5S.2A; GLUCOSE,POINT OF CARE 135 MG/DL (70-110)
[2020-02-01 11:05] LABS: GLUCOMETER DEV NAME(LOC) 5S.2A; GLUCOSE,POINT OF CARE 137 MG/DL (70-110)
[2020-02-01 11:12] VITALS: BP 144/67
[2020-02-01] MEDS: ACETAMINOPHEN 325 MG TABLET PO PRN (11:23)
[2020-02-01 12:06] LABS: H. PYLORI ANTIBODY IGA <9.0 units (0.0-8.9)
[2020-02-01 12:46] LABS: GLUCOMETER DEV NAME(LOC) 5S.2A; GLUCOSE,POINT OF CARE 187 MG/DL (70-110)
[2020-02-01 12:53] LABS: ANION GAP 3 mmol/L (8-16); CALCIUM, TOTAL 8.5 mg/dL (8.8-10.5); CARBON DIOXIDE 33 mmol/L (22-29); CHLORIDE 100 mmol/L (98-107); CREATININE 0.74 mg/dL (0.60-1.30); GLOMERULAR FILTR. RATE CALC > 60 mL/min (>60); GLUCOSE,RANDOM 195 mg/dL (70-110); POTASSIUM 3.4 mmol/L (3.5-5.1); SODIUM SERUM 136 mmol/L (136-145); UREA NITROGEN, BLOOD 13 mg/dL (7-18)
[2020-02-01 13:10] LABS: BASOPHILS % (AUTO) 1.5 % (0.0-2.0); EOSINOPHILS % (AUTO) 3.4 % (1.0-6.0); HEMATOCRIT 30.2 % (36-46); HEMOGLOBIN 9.4 g/dL (12.0-16.0); LYMPHOCYTES # (AUTO) 2.2 K/uL (1.0-4.8); LYMPHOCYTES % (AUTO) 28.2 % (22.0-44.0); MEAN CORPUSCULAR HEMOGLOBIN 27.3 pg (26.0-34.0); MEAN CORPUSCULAR HGB CONC 31.2 G/dL (31.0-37.0); MEAN CORPUSCULAR VOLUME 88 fL (80-100); MONOCYTES # (AUTO) 0.6 K/uL (0.1-1.0); MONOCYTES % (AUTO) 8.2 % (2.0-9.0); NEUTROPHILS # (AUTO) 4.5 K/uL (1.8-7.7); NEUTROPHILS % (AUTO) 58.7 % (40.0-70.0); PLATELET COUNT (AUTO) 174 K/uL (150-450); RED BLOOD CELL COUNT(AUTO) 3.45 MIL/uL (4.00-5.20); RED CELL DISTRIBUTION WIDTH 21.4 % (11.5-14.5)
[2020-02-01] MEDS ORDERED: INSU100V SQ (13:30)
[2020-02-01] MEDS ORDERED: LORA2I IVP (13:32)
[2020-02-01] MEDS ORDERED: MOM30 PO (13:32)
[2020-02-01] MEDS ORDERED: ASPI-728 PO (14:11)
[2020-02-01] MEDS ORDERED: AMIO200T67 PO (14:12)
[2020-02-01] MEDS ORDERED: POTASSIUM CHLORIDE 10% 40 MEQ/30 ML LIQUID UDCUP GT ONE (14:15)
[2020-02-01] MEDS ORDERED: AMIODARONE HCL 750 MG in DEXTROSE 5%-WATER 485 ML IV SCH (18:30)
[2020-02-01] MEDS ORDERED: AMIODARONE HCL 200 MG TABLET PO SCH (21:00)
== END 2020-02-01 16:20 | DRG 4 ==
LOC: EMS 14:38 → 4E 20:55 → 5S 01-15 22:58 → ICU 01-16 04:00 → 5S 01-29 17:45
PROVIDERS: ADMIT Internal Medicine; ATTEND Internal Medicine
PROC: 5A09357 Assistance with Respiratory Ventilation, Less than 24 Consecutive Hours, Continuous Positive Airway Pressure (ICD-10-PCS; 2020-01-15)
PROC: 5A1955Z Respiratory Ventilation, Greater than 96 Consecutive Hours (ICD-10-PCS; principal; 2020-01-16)
PROC: 0BH17EZ Insertion of Endotracheal Airway into Trachea, Via Natural or Artificial Opening (ICD-10-PCS; 2020-01-16)
PROC: B54MZZA Ultrasonography of Right Upper Extremity Veins, Guidance (ICD-10-PCS; 2020-01-19)
PROC: 05HY33Z Insertion of Infusion Device into Upper Vein, Percutaneous Approach (ICD-10-PCS; 2020-01-19)
PROC: 0W993ZZ Drainage of Right Pleural Cavity, Percutaneous Approach (ICD-10-PCS; 2020-01-19)
PROC: 0B113F4 Bypass Trachea to Cutaneous with Tracheostomy Device, Percutaneous Approach (ICD-10-PCS; 2020-01-28)
PROC: 0DH63UZ Insertion of Feeding Device into Stomach, Percutaneous Approach (ICD-10-PCS; 2020-01-31)
DX: A41.9 Sepsis, unspecified organism (principal); J96.01 Acute respiratory failure with hypoxia; J69.0 Pneumonitis due to inhalation of food and vomit; J96.02 Acute respiratory failure with hypercapnia; N17.9 Acute kidney failure, unspecified; E87.1 Hypo-osmolality and hyponatremia; Z99.11 Dependence on respirator [ventilator] status; E11.9 Type 2 diabetes mellitus without complications; D64.9 Anemia, unspecified; J44.9 Chronic obstructive pulmonary disease, unspecified; E78.00 Pure hypercholesterolemia, unspecified; F17.210 Nicotine dependence, cigarettes, uncomplicated; E66.01 Morbid (severe) obesity due to excess calories; R62.7 Adult failure to thrive; R13.10 Dysphagia, unspecified; E78.5 Hyperlipidemia, unspecified; F31.9 Bipolar disorder, unspecified; I50.9 Heart failure, unspecified; I11.0 Hypertensive heart disease with heart failure; I48.91 Unspecified atrial fibrillation; Z90.710 Acquired absence of both cervix and uterus; Z90.49 Acquired absence of other specified parts of digestive tract; Z68.31 Body mass index [BMI] 31.0-31.9, adult
CPT/HCPCS: 32555; 36245; 36569; 36600; 71250; 72170; 74177; 76937; 76942; 82465; 82805; 82945; 83615; 83735; 83986; 84100; 84132; 84155; 84157; 86677; 87015; 87070; 87081; 87101; 87205; 87206; 87635; 89051; 93005; 93306; 94002; 94003; 94640; 94660; G0378; G0480; J0282; J0330; J0690; J1630; J1644; J1956; J2060; J2543; J2704; J2765; J2920; J3010; J3370; J3475; J3490; J7030; J7040; J7050; J7060

== ENCOUNTER 2020-04-03 13:27 | Emergency (ER) | payer MEDICARE, OTHER ==
[~2020-04-03] VITALS: Ht 162.6 cm; Wt 82.2 kg
[~2020-04-03 13:27] MED LIST changes: +AMIO200T6 PO; +ASPI-728 PO; -ATOR20TA86 PO; +AUD NEB; -BENZ100C68 PO; +BISA-151 PO; -BISM525O9 PO; +CEFA1FRO IV; +DOCU-275 PO; -ENAL20 PO; +FLUT1BLS IH; -GABA-533 PO; -GUAIF10 PO; +HEPA500018 SQ; -HYDR-1475 PO; +INSU100V SQ; -IPRAHFA IH; +IPRNEB IH; -LACT100C2 PO; -LEVO330T5 PO; -LOPE-202 PO; +LORA2I IVP; -MAGOX PO; -METF-960 PO; +METO10L PO; +MOM30 PO; -MULT-1192 PO; -NAPR-1025 PO; +NYST30CR9 TP; -OXYB5 PO; +QUET100T PO; -QUET200T PO; +QUET25TA PO; +SCOP1PAT11 TD; -SERT100T12 PO; +SERT50TA12 PO; -SITA100 PO; +SM500I IV
[2020-04-03] MEDS ORDERED: LEVO2.5S4 PO (13:50)
[2020-04-03] MEDS ORDERED: ATOR20TA65 PO (13:50)
[2020-04-03] MEDS ORDERED: SITA100 PO (13:50)
[2020-04-03 15:05] LABS: BASOPHILS % (AUTO) 1.4 % (0.0-2.0); EOSINOPHILS % (AUTO) 9.1 % (1.0-6.0); HEMATOCRIT 34.2 % (36-46); HEMOGLOBIN 11.2 g/dL (12.0-16.0); LYMPHOCYTES # (AUTO) 2.2 K/uL (1.0-4.8); LYMPHOCYTES % (AUTO) 27.7 % (22.0-44.0); MEAN CORPUSCULAR HGB CONC 32.8 G/dL (31.0-37.0); MEAN CORPUSCULAR VOLUME 89 fL (80-100); MONOCYTES # (AUTO) 0.6 K/uL (0.1-1.0); MONOCYTES % (AUTO) 7.9 % (2.0-9.0); NEUTROPHILS # (AUTO) 4.3 K/uL (1.8-7.7); NEUTROPHILS % (AUTO) 53.9 % (40.0-70.0); PLATELET COUNT (AUTO) 252 K/uL (150-450); RED BLOOD CELL COUNT(AUTO) 3.86 MIL/uL (4.00-5.20); RED CELL DISTRIBUTION WIDTH 19.7 % (11.5-14.5)
[2020-04-03 15:22] LABS: ANION GAP 8 mmol/L (8-16); CALCIUM, TOTAL 9.1 mg/dL (8.8-10.5); CARBON DIOXIDE 29 mmol/L (22-29); CHLORIDE 96 mmol/L (98-107); CREATININE 1.27 mg/dL (0.60-1.30); GLOMERULAR FILTR. RATE CALC 43 mL/min (>60); GLUCOSE,RANDOM 117 mg/dL (70-110); POTASSIUM 4.2 mmol/L (3.5-5.1); SODIUM SERUM 133 mmol/L (136-145); UREA NITROGEN, BLOOD 24 mg/dL (7-18)
[2020-04-03 15:26] LABS: LACTIC ACID 1.9 mmol/L (0.4-2.0)
[2020-04-03 15:28] LABS: ALANINE AMINOTRANSFERASE 10 U/L (12-78); ALBUMIN 3.4 g/dL (3.4-5.0); ALKALINE PHOSPHATASE 117 U/L (46-116); ASPARTATE AMINOTRANSFERASE 13 U/L (15-37); BILIRUBIN,TOTAL 0.4 mg/dL (0.1-1.0); TOTAL PROTEIN, SERUM 7.6 g/dL (6.4-8.2)
[2020-04-03 15:48] VITALS: BP 152/78
[2020-04-03 17:17] LABS: GLUCOSE,POINT OF CARE 121 MG/DL (70-110)
[2020-04-03 17:36] LABS: AMPHET/METH SCREEN,URINE NEGATIVE (NEGATIVE); BARBITURATE SCREEN, URINE NEGATIVE (NEGATIVE); BENZODIAZEPINES SCREEN,URINE NEGATIVE (NEGATIVE); CANNABINOID SCREEN,URINE NEGATIVE (NEGATIVE); COCAINE SCREEN,URINE NEGATIVE (NEGATIVE); METHADONE SCREEN, URINE NEGATIVE (NEGATIVE); OPIATE SCREEN,URINE NEGATIVE (NEGATIVE)
[2020-04-03 17:40] LABS: PHENCYCLIDINE SCREEN,URINE NEGATIVE (NEGATIVE)
[2020-04-03 17:45] LABS: APPEARANCE,URINE CLEAR (CLEAR); BILIRUBIN,URINE NEGATIVE (NEGATIVE); GLUCOSE, URINE (UA) NEGATIVE (NEGATIVE); KETONES,URINE NEGATIVE (NEGATIVE); LEUKOCYTE ESTERASE ,URINE LARGE (NEGATIVE); NITRATE,URINE NEGATIVE (NEGATIVE); OCCULT BLOOD,URINE TRACE (NEGATIVE); PH,URINE 7.5 (5.0-8.0); PROTEIN,URINE NEGATIVE (NEGATIVE); UROBILINOGEN,URINE 0.2 mg/dL (<=1.0)
[2020-04-03 18:42] LABS: RBC,URINE 0-2 /HPF (0-2)
[2020-04-03 18:43] LABS: BACTERIA,URINE Few /HPF (None Seen); SQUAMOUS EPITHELIAL CELL,UR Few /LPF (None Seen)
== END 2020-04-03 19:29 | disposition home or self-care (01) ==
LOC: EMS 13:32
DX: F69 Unspecified disorder of adult personality and behavior (principal); J44.9 Chronic obstructive pulmonary disease, unspecified; F32.9 Major depressive disorder, single episode, unspecified; E11.9 Type 2 diabetes mellitus without complications; E78.00 Pure hypercholesterolemia, unspecified; F17.210 Nicotine dependence, cigarettes, uncomplicated; Z03.818 Encounter for observation for suspected exposure to other biological agents ruled out; Z90.710 Acquired absence of both cervix and uterus; Z90.89 Acquired absence of other organs
CPT/HCPCS: 36415; 71045; 80053; 80307; 81001; 82962; 83605; 85025; 87040; 87077; 87086; 87186; 93005; 99285; 99406; G0480; U0003

== ENCOUNTER 2020-08-20 16:28 | Emergency (ER) | payer MEDICARE, OTHER ==
[~2020-08-20] VITALS: Ht 160 cm; Wt 65.9 kg
[~2020-08-20 16:28] MED LIST changes: -AMIO200T6 PO; +ATOR20TA65 PO; -CEFA1FRO IV; +LEVO2.5S4 PO; -METO10L PO; -NYST30CR9 TP; -QUET25TA PO; -SCOP1PAT11 TD; -SERT50TA12 PO; +SITA100 PO; -SM500I IV
[2020-08-20 18:45] VITALS: BP 118/72
[2020-08-21 00:23] LABS: GLUCOSE,POINT OF CARE 114 MG/DL (70-110)
== END 2020-08-20 19:06 | disposition home or self-care (01) ==
LOC: EMS 16:28
DX: S80.01XA Contusion of right knee, initial encounter (principal); J44.9 Chronic obstructive pulmonary disease, unspecified; F32.9 Major depressive disorder, single episode, unspecified; E11.9 Type 2 diabetes mellitus without complications; E78.00 Pure hypercholesterolemia, unspecified; I10 Essential (primary) hypertension; F17.210 Nicotine dependence, cigarettes, uncomplicated; Z90.89 Acquired absence of other organs; Z79.4 Long term (current) use of insulin; W19.XXXA Unspecified fall, initial encounter; Y93.89 Activity, other specified; Y92.89 Other specified places as the place of occurrence of the external cause; Y99.8 Other external cause status